=== PATIENT | male | born 1995 | race African-American/Black ===

== ENCOUNTER 2023-08-16 09:24 | Outpatient (AMB) | payer BC, SELFPAY ==
--- NOTE | 2023-08-16 09:31 | A.OFFPC_ITS ---
Vital Signs 08/16/23 09:44 Height 6 ft Weight 254 lb BMI 34.4 BP 110/72 Blood Pressure Location Lt brachial Position Sitting Pulse 68 Pulse Source Pulse Oximeter Pulse Oximetry (%) 99 Oxygen Delivery Method Room Air Intake Visit Reasons: [employer]/PE Intake Note: Pt is here today as a New Patient to [facility] care/PE Allergies No Known Allergies Allergy (Verified 08/16/23 10:09) Medication List - Last Reconciled 08/16/23 by Nini Lucia MD No Known Home Meds Tobacco use date assessed: 08/16/23 Dental Screening Did you have a dental visit in the last 12 months?: Yes Did you have a dental problem in the last 6 months where you did not have access to dental care?: No Was dental information given to patient?: Patient has dentist HPI [employer]/PE HPI Details 28-year-old male, here today to [facility] with a new PCP and for physical exam. Up-to-date with all his vaccinations including his flu , obtained at work, up-to-date with Tdap, but has not yet had a COVID booster. He has been having depressive thoughts, low mood ever since see relocated for job in [place] 3 years ago. Patient states that he has never been seen by therapist, nor has he has taken any medication for this. He moved here now to [facility], and states that he still has low mood, anhedonia, and would like to see a therapist , but not interested in taking any medication at present time. He also felt a nonpainful lump in his left testicle, which he felt a year ago, and has not had it checked. Denies any urinary symptoms, no sexual dysfunction reported. [facility] Medical History (Updated 08/16/23 @ 11:03 by Nini Lucia MD) Mixed anxiety depressive disorder Mass of left testicle Obesity (BMI 30.0-34.9) Surgical History (Updated 08/16/23 @ 10:13 by Nini Lucia MD) No pertinent past surgical history Family History (Updated 08/16/23 @ 10:16 by Nini Lucia MD) Mother Depression Maternal Aunt Mental health disorder Father HTN (hypertension) Maternal Aunt Breast cancer, Onset Age: 40 CVA (cerebral vascular accident) Paternal Uncle Diabetes mellitus Social History Housing: House Patient Tobacco Use Status: Former Tobacco user e-Cigarette/Vaping Use: Never Used service: No Current occupational status: employed Cognitive needs: No Hearing needs: No Vision needs: No Questionnaire PHQ-9 Over the last 2 weeks, how often have you been bothered by any of the following problems? 1. Little interest or pleasure in doing things: several days 2. Feeling down, depressed, or hopeless: more than half the days 3. Trouble falling or staying asleep, or sleeping too much: more than half the days 4. Feeling tired or having little energy: more than half the days 5. Poor appetite or overeating: more than half the days 6. Feeling bad about yourself - or that you are a failure or have let yourself or your family down: several days 7. Trouble concentrating on things, such as reading the newspaper or watching t elevision: several days 8. Moving or speaking so slowly that other people could have noticed. Or the opposite - being so fidgety or restless that you have been moving around a lot more than usual: more than half the days 9. Thoughts that you would be better off or of hurting yourself in some way: not at all Total score: 13 Depression Screening Interpretation: Positive Depression Screening Follow-up: Existing condition and Community Mental Health Worker F/U Depression Screening Done: Yes [id number] - PHQ-9 Billing: Yes Source: Developed by Drs. Malik Dotson, Candelaria Shine, Сергей Basurto and colleagues, with an educational doyle from [employer]. Thrive Questionnaire Date Thrive assessed: 08/16/23 I am a: Patient What is your living situation today?: I have a steady place to live Within the past 12 months, did the food you bought not last and you didn't have the money to get more?: Never true Within the past 12 months, did you worry whether your food would run out before you got money to buy more?: Never true Do you have trouble paying for medicines?: No Do you have trouble getting transportation to medical appointments?: No Do you have trouble paying your heating and electricity bill?: No Do you have trouble taking care of your child, family member or friend?: No Do you have trouble with day-to-day activities such as bathing, preparing meals, shopping, managing finances, etc.?: No Are you currently unemployed and looking for a job?: No Are you interested in more education?: Yes AUDIT C Alcohol Use Questionnaire (AUDIT-C) 1. How often do you have a drink containing alcohol?: Never Total Score: 0 MALLY-7 AMB Questionnaire MALLY-7 Date MALLY - 7 assessed: 08/16/23 Feeling nervous, anxious, or on edge: 1 = Several days Not being able to stop or control worryin = Not at all Worrying too much about different things: 1 = Several days Trouble relaxin = Several days Being so restless that it is hard to sit still: 1 = Several days Becoming easily annoyed or irritable: 2 = More than half the days Feeling afraid as if something awful might happen: 1 = Several days Total MALLY-7 score (0-4 normal; 5-9 mild; 10-14 moderate; 15-21 severe): 7 Source: Developed by Drs. Malik Dotson, Candelaria Shine, Сергей Basurto and colleagues, with an educational doyle from [employer]. MALLY-7 Assessment Billing MALLY-7 Assessment Tool: MALLY-7 Assessment 61991 Review of Systems Const Denies body aches, Denies fatigue, Denies fever(s), Denies headache(s) and Denies weakness Eyes Denies change in vision ENT Denies dizziness, Denies headache(s), Denies nasal congestion, Denies nasal discharge and Denies sore throat Card Denies chest pain, Denies lightheadedness, Denies palpitations and Denies dyspnea Resp Denies chest congestion, Denies cough, Denies dyspnea and Denies wheezing GI Denies abdominal pain, Denies change in bowel habits and Denies heartburn Reports as per HPI, Denies change in libido, Denies hematuria, Denies difficulty urinating, Denies dysuria, Denies urinary frequency and Denies urinary urgency Musc Reports no additional complaints Skin/Breast Denies breast pain, Denies breast mass, Denies lesions and Denies rash Neuro Denies dizziness, Denies headache(s) and Denies weakness Psych Reports as per HPI, Denies change in libido, Denies panic attacks, Denies homicidal ideation and Denies suicidal ideation Endo Denies change in libido, Denies fatigue, Denies polydipsia, Denies polyuria and Denies palpitations Derek/Lymph Denies easy bruising Aller/Immun Denies seasonal rhinorrhea and Denies wheezing Physical exam (Primary Care) Vital Signs: Last Vital Signs Pulse 68 08/16/23 09:44 BP 110/72 08/16/23 09:44 Pulse Ox 99 08/16/23 09:44 Oxygen Delivery Method Room Air 08/16/23 09:44 BMI result Body Mass Index 34.4 BMI Assessment/Plan discussion: High BMI High, discussed plan: lifestyle, weight reduction, dietary and physical activity Tobacco/Smoking Status: Tobacco use Status Tobacco use date assessed 08/16/23 08/16/23 09:38 Patient Tobacco Use Status Former Tobacco user 08/16/23 09:48 e-Cigarette/Vaping Use Never Used 08/16/23 09:48 PHQ-9: PHQ-9 Score PHQ-9: Total score 13 08/16/23 11:09 Depression Screening Interpretation: Positive Depression Screening Follow-up: Existing condition and Community Mental Health Worker F/U Thrive Assessment: Date of Thrive Assessment Date Thrive assessed 08/16/23 08/16/23 09:50 Const General: no acute distress and alert Nutritional Appearance: obese Orientation/consciousness: patient oriented x3 HENMT Head: Yes normocephalic and Yes atraumatic Ears: external ears normal, TM's normal bilaterally and EAC's normal General nose exam: Normal external nose present and No nasal discharge present Face and sinus: Yes face symmetric Mouth: Normal oral and palatal mucosa present, lip normal, tongue normal, oropharynx normal and moist mucous membranes Eyes General: appearance normal, both eyes and all related structures Eyelids: Yes eyelids normal Conjunctivae: conjunctivae normal Sclerae: sclerae normal Pupils: Equal, round and reactive pupils present EOM: EOMs intact bilaterally Neck Neck: Yes full ROM, Yes no lymphadenopathy and Yes supple Thyroid: Thyroid normal (Nonpalpable) Chest Chest palpation & inspection: normal inspection of the chest and normal palpation of entire chest wall Resp Effort & Inspection: normal respiratory effort and able to speak in complete sentences Auscultation: clear to auscultation bilaterally Cardio Rate: regular rate Rhythm: regular rhythm Heart sounds: S1 normal heart sound present and S2 normal heart sound present GI Palpation (GI): Soft to palpation, nontender, no guarding and no masses Auscultation: normal bowel sounds General: Yes no CVA tenderness Male General Exam: Yes normal external exam, No hernia and No inguinal lymphadenopathy Penis: uncircumcised Meatus: meatus normal Scrotum: no scrotal swelling Testes: testicular mass (Firm nontender nodular mass palpated left testicle) Back/Spine/Pelvis Back: no CVA tenderness and No back tenderness Skin Other: assymetric Hyperpigmented slightly raised lesion with irregular borders on mid Abdomen Neuro General: patient oriented x3, gait normal, moves all extremities, Normal light touch and pain sensation, no focal motor deficits and CN's II-XI intact bilaterally Cranial nerves: Yes Equal, round and reactive pupils present Cognition (Neuro): normal cognition Gait exam (Neuro): Normal gait present Motor exam (neuro): 5/5 motor strength present throughout Extrem General: Yes normal to inspection, Yes full ROM, Yes no joint enlargement, Yes no pedal edema and Yes normal gait Psych Appearance: grossly normal and well kempt Mental Status: mental status grossly normal Speech and movement: Normal speech and movement present Affect: normal affect Attitude: cooperative Thought process: Normal thought process present Thought content: Normal thought content present Assessment and Plan Assessment & Plan (1) Adult general medical exam: Code(s): Z00.00 - Encounter for general adult medical examination without abnormal findings Plan: Will check appropriate labs. Continue regular dental visit every 6 months and regular eye exams, at least every 2 years. Has a left testicular mass palpated, referred to urology and ordered ultrasound of scrotum. Up-to-date with his vaccine for flu, declines getting COVID booster, up-to-date with Tdap (2) Mass of left testicle: Code(s): N50.89 - Other specified disorders of the male genital organs Plan: Ultrasound scrotum Doppler and urology consult ordered (3) Obesity (BMI 30.0-34.9): Code(s): E66.9 - Obesity, unspecified Plan: Recommended focusing on improving your health instead of dieting. : Eat Mediterranean diet, limit foods high in fat, sugar, and calories, eat slowly, pay attention to portion sizes, plan your meals ahead of time, start regular physical activity 150 minutes of moderate intensity exercise or 90 minutes/week of vigorous exercise and increase water intake. (4) Skin lesion: Code(s): L98.9 - Disorder of the skin and subcutaneous tissue, unspecified Plan: Referral ordered to see [facility] for further evaluation (5) Mixed anxiety depressive disorder: Code(s): F41.8 - Other specified anxiety disorders Plan: Referred to our [facility] for assistance in getting in to see a therapist. Declines starting medication at present time Orders: Orders Comprehensive [place]. Panel Fast Today E66.9 - Obesity, unspecified, N50.89 - Other specified disorders of the male genital organs, Z00.00 - Encounter for general adult medical examination without abnormal findings Vitamin D 25-OH Total Today E66.9 - Obesity, unspecified, N50.89 - Other specified disorders of the male genital organs, Z00.00 - Encounter for general adult medical examination without abnormal findings US scrotum doppler Today N50.89 - Other specified disorders of the male genital organs Lipid Panel Today E66.9 - Obesity, unspecified, N50.89 - Other specified diso rders of the male genital organs, Z00.00 - Encounter for general adult medical examination without abnormal findings Referrals Dermatology Referral L98.9 - Disorder of the skin and subcutaneous tissue, unspecified Urology Referral N50.89 - Other specified disorders of the male genital organs Coding Level of Care Code New Pt Prev Care 18-39yr([id number] Diagnoses Adult general medical exam Z00.00 Mass of left testicle N50.89 Obesity (BMI 30.0-34.9) E66.9 Skin lesion L98.9 Mixed anxiety depressive disorder F41.8 Additional Codes MALLY-7 Assessment Billing - MALLY-7 Assessment Tool: MALLY-7 Assessment 13507 ([id number])
[2023-08-16 09:44] VITALS: BP 110/72; PULSE 68; O2SAT 99; BMI 34.4
== END 2023-08-16 10:42 | disposition home or self-care (01) ==
PROVIDERS: PCP Internal Medicine; Visit Provider Internal Medicine
DX: Z00.00 Encounter for general adult medical examination without abnormal findings (principal); N50.89 Other specified disorders of the male genital organs; E66.9 Obesity, unspecified; Z68.34 Body mass index [BMI] 34.0-34.9, adult; L98.9 Disorder of the skin and subcutaneous tissue, unspecified; F41.8 Other specified anxiety disorders
CPT/HCPCS: 99385

== ENCOUNTER 2023-08-16 10:43 | Outpatient (REF) | payer BC, SELFPAY ==
[2023-08-16 13:31] LABS: Alanine Aminotransferase 30 U/L (0-40); Albumin Level 4.7 g/dL (3.5-5.0); Alkaline Phosphatase 61 U/L (39-117); Anion Gap 13 (12-20); Aspartate Amino Transferase 20 U/L (5-37); Bilirubin Total 0.6 mg/dL (0.0-1.0); Blood Urea Nitrogen 12 mg/dL (9-16); Carbon Dioxide 27 mmol/L (22-29); Chloride 105 mmol/L (96-108); Cholesterol 214 mg/dL (<200); Estimated Glomerular Filt Rate > 60; Glucose Fasting 91 mg/dL (60-99); HDL Cholesterol 48 mg/dL (>40); LDL Cholesterol Calculated 138 mg/dL (<100); Potassium 4.1 mmol/L (3.3-5.1); Sodium 141 mmol/L (135-145); Total Protein 7.9 g/dL (6.5-8.0); Triglycerides 140 mg/dL (<150)
[2023-08-16 13:50] LABS: Vitamin D 25-OH Total 27.1 ng/mL (>30)
== END 2023-08-16 10:44 | disposition home or self-care (01) ==
LOC: HO.HMGCLDS 10:43
PROVIDERS: PCP Internal Medicine; Visit Provider Internal Medicine
DX: Z00.00 Encounter for general adult medical examination without abnormal findings (principal); N50.89 Other specified disorders of the male genital organs; E66.9 Obesity, unspecified
CPT/HCPCS: 36415; 80053; 80061; 82306

== ENCOUNTER 2023-08-23 13:45 | Outpatient (REF) | payer BC, SELFPAY ==
--- NOTE | ~2023-08-23 | US_ITS ---
EXAMINATION: US SCROTUM CLINICAL INFORMATION: Other side scratch that other specified disorders of the male genital organs Mass of left testicle, nonpainful. COMPARISON: None available. TECHNIQUE: A sonogram of the scrotum was performed assessing perez-scale appearance and color Doppler flow. Spectral Doppler analysis of the arterial and venous flow were performed in the testes bilaterally. FINDINGS: RIGHT: Right testicle measures 4.3 x 2.6 x 3.5 cm, volume 20.5 mL. No focal testicular parenchymal lesions are visualized. Spectral Doppler analysis of the arterial and venous flow is normal in the right testis. Right epididymal head is normal in size. No right hydrocele or varicocele is seen. Right epididymal Doppler flow is normal. LEFT: Left testicle measures 4.3 x 2.5 x 3.2 cm, volume 18.0 mL. No focal testicular parenchymal lesions are visualized. Spectral Doppler analysis of the arterial and venous flow is normal in the left testis. Left epididymal head is normal in size. 0.4 x 0.5 x 0.4 cm septated epididymal head cyst is seen. No left hydrocele or varicocele is seen. Left epididymal Doppler flow is normal in the head and body. 1.6 x 1.6 x 1.8 cm well-defined solid round heterogeneous mass is seen in the epididymal tail with both arterial and venous vascular supply. US/US scrotum IMPRESSION: 1. Normal testicles and right epididymal head. 2. 0.5 cm septated left epididymal head cyst. 3. 1.8 cm well-defined solid round heterogeneous mass in the left epididymal tail with both arterial and venous vascular supply. Urology consult should be considered.
== END 2023-08-23 13:46 | disposition home or self-care (01) ==
LOC: HO.HMGCX 13:45
PROVIDERS: PCP Internal Medicine; Visit Provider Internal Medicine
DX: N50.89 Other specified disorders of the male genital organs (principal)
CPT/HCPCS: 76870

== ENCOUNTER 2023-09-13 15:02 | Outpatient (AMB) | payer BC, SELFPAY ==
--- NOTE | 2023-09-13 15:04 | A.OFFVIS_ITS ---
Intake Intake Visit Reasons: scrotal mass Intake Note: New Patient presents for initial visit for Scrotal Mass Urology Medications: none Blood Thinner: none Butter Production Supervisor Required: No Accompanied by: Self / Same As Patient Allergies No Known Allergies Allergy (Verified 09/13/23 15:43) Medication List - Last Reconciled 09/13/23 by LISS Barrett cholecalciferol (vitamin D3) 1,250 mcg PO QWEEK 3 months HPI HPI Comments History of Present Illness Details Esdras is a very pleasant 28-year-old male patient of Dr. Lucia. He has a past medical history of anxiety, depression, and vitamin-D deficiency. He presents to the office today as a new patient for left-sided scrotal mass. In discussion with the patient today he reports noting scrotal mass for over 2-3 years. He reports having followed up with his PCP for an annual visit at which time he discussed findings with PCP and a scrotal ultrasound was ordered for further assessment evaluation. These results were reviewed with the patient today. Normal testicles and right epididymal head. 0.5 cm sseptated left epididymal head cysts. 1.8 cm well-defined solid round heterogeneous mass in the left epididymal tail with both arterial and venous vascular supply. In assessment of the patient today proximally nickel sized lump noted to left epididymal tail. Mild tenderness noted on exam today. Otherwise no other lumps, lesions, and or drainage noted to area. Discussed at length potential causes for scrotal cysts. Patient otherwise denies any bothersome urinary issues or concerns. He denies urinary urgency, urinary frequency, incontinence, nocturia, hematuria, dysuria, foul smelling urine, changes to urinary stream, flank pain, fever, and or chills. He is happy with his current voiding parameters. [facility] Medical History Vitamin D deficiency Mixed anxiety depressive disorder Mass of left testicle Obesity (BMI 30.0-34.9) Surgical History No pertinent past surgical history Family History Mother Depression Maternal Aunt Mental health disorder Father HTN (hypertension) Maternal Aunt Breast cancer, Onset Age: 40 CVA (cerebral vascular accident) Paternal Uncle Diabetes mellitus Social History Housing: House Patient Tobacco Use Status: Former Tobacco user e-Cigarette/Vaping Use: Never Used service: No Current occupational status: employed Cognitive needs: No Hearing needs: No Vision needs: No Review of Systems Const All systems reviewed & are unremarkable except as noted in HPI and below Eyes Reports no additional complaints ENT Reports no additional complaints Card Reports no additional complaints Resp Reports no additional complaints GI Reports no additional complaints Reports as per HPI Musc Reports no additional complaints Neuro Reports no additional complaints Psych Reports as per HPI Endo Reports no additional complaints Derek/Lymph Reports no additional complaints Aller/Immun Reports no additional complaints Physical Exam Const General: cooperative, healthy appearing, comfortable, no acute distress, well developed, alert and awake Orientation/consciousness: patient oriented x3 Limitations: no limitations HEENT Head: Yes normal to inspection, Yes normocephalic and Yes atraumatic Ears: hearing grossly normal bilaterally Eyes General: appearance normal, both eyes and all related structures Neck Neck: Yes normal visual inspection and Yes trachea midline Chest Chest palpation & inspection: normal inspection of the chest Resp Effort & Inspection: normal respiratory effort and able to speak in complete sentences Cardio Rate: regular rate GI Inspection: Yes normal to inspection General: Yes no CVA tenderness Back/Spine/Pelvis Back: no CVA tenderness Skin General skin exam: no rashes or lesions noted Neuro General: patient oriented x3 Extrem General: Yes normal to inspection Psych Appearance: grossly normal and well kempt Mental Status: mental status grossly normal Speech and movement: Normal speech and movement present and Clear speech present Affect: normal affect Attitude: cooperative Thought process: Normal thought process present Thought content: Normal thought content present Insight: Good insight present (Psych) Judgement: Good judgement present (Psych) Results Reviewed Results Reviewed: Date of Service: 08/23/23 EXAMINATION: US SCROTUM FINDINGS: RIGHT: Right testicle measures 4.3 x 2.6 x 3.5 cm, volume 20.5 mL. No focal testicular parenchymal lesions are visualized. Spectral Doppler analysis of the arterial and venous flow is normal in the right testis. Right epididymal head is normal in size. No right hydrocele or varicocele is seen. Right epididymal Doppler flow is normal. LEFT: Left testicle measures 4.3 x 2.5 x 3.2 cm, volume 18.0 mL. No focal testicular parenchymal lesions are visualized. Spectral Doppler analysis of the arterial and venous flow is normal in the left testis. Left epididymal head is normal in size. 0.4 x 0.5 x 0.4 cm septated epididymal head cyst is seen. No left hydrocele or varicocele is seen. Left epididymal Doppler flow is normal in the head and body. 1.6 x 1.6 x 1.8 cm well-defined solid round heterogeneous mass is seen in the epididymal tail with both arterial and venous vascular supply. IMPRESSION: 1. Normal testicles and right epididymal head. 2. 0.5 cm septated left epididymal head cyst. 3. 1.8 cm well-defined solid round heterogeneous mass in the left epididymal tail with both arterial and venous vascular supply. Urology consult should be considered. Assessment & Plan Assessment & Plan (1) Epididymal cyst: Code(s): N50.3 - Cyst of epididymis Plan Unable to obtain urine for urinalysis however PVR 0 mL. Recent scrotal ultrasound results reviewed with the patient today; as noted above. Reassurance provided. Discussed at length potential causes for epididymal tail cyst. Patient currently denies any bothersome urinary issues or concerns. Will obtain scrotal ultrasound in 6 months for surveillance monitoring. Follow-up in 6 months with imaging to be completed prior; or sooner with any issues, concerns, and or questions. Orders: Orders US scrotum Today N50.3 - Cyst of epididymis AMB Urinalysis Automated Today Z13.9 - Encounter for screening, unspecified Patient Instructions: The patient had an opportunity to ask questions regarding the treatment plan. All questions were answered. Physical exam, labs, and imaging were discussed and reviewed in detail. As well as risks, benefits, and discussion of treatment choices. No major barriers to understanding were identified. The patient expressed understanding and agreement with the above treatment plan. The patient was made aware they should contact our office by phone for worsening of their current condition, the appearance of new symptoms, or with any questions or concerns. Compliance is encouraged with any medications and follow up testing that is ordered. It is a privilege to be allowed the opportunity to participate in? your urological care.? Again, if you have any questions or concerns If you have any questions or concerns please do not hesitate to contact me. The office is [phone]. This note is constructed using voice recognition software. While every effort has been made to ensure accuracy casualty underwriter errors may have been included. Yours sincerely, Nicolle Hodge, HAND [employer] Coding Level of Care Code New Pt Level 3 (58715) Diagnoses Epididymal cyst N50.3
== END 2023-09-13 15:42 | disposition home or self-care (01) ==
PROVIDERS: PCP Internal Medicine; Referring Provider Internal Medicine; Visit Provider Nurse Practitioner Family
DX: N50.3 Cyst of epididymis (principal)
CPT/HCPCS: 99203

== ENCOUNTER → 2023-09-13 15:02 | Outpatient (BNVA) | payer BC, SELFPAY | PROVIDERS: PCP Internal Medicine; Visit Provider Nurse Practitioner Family ==

== ENCOUNTER 2023-12-07 11:47 | Outpatient (AMB) | payer OTHER, SELFPAY ==
[2023-12-07 11:52] VITALS: BP 112/70; PULSE 74; TEMP 36.8; O2SAT 99; BMI 33.6
--- NOTE | 2023-12-07 11:52 | MHC.OFFWIV ---
Intake Vital Signs 12/07/23 11:52 Height 6 ft Weight 248 lb BMI 33.6 BP 112/70 Blood Pressure Location Lt brachial Position Sitting Pulse 74 Pulse Source Pulse Oximeter Temp 98.2 F Temp Source Oral Pulse Oximetry (%) 99 Intake Visit Reasons: EP RT index finger infection (lobby) Intake Note: pt is here for right index finger infection, for a few days and denies injury Patient Tobacco Use Status: Former Tobacco user Allergies No Known Allergies Allergy (Verified 12/07/23 11:53) Do you need a note to return to daycare/school/sports/work: Yes HPI HPI Comments History of Present Illness Details The patient presents to the emergency department for evaluation of right hand 2nd digit infection. He states that he occasionally bites his cuticles. He states that a few days ago there was some purulent drainage but that has stopped. The area is tender and swollen. COUNT INCLUDES THE [facility] Medical History Vitamin D deficiency Mixed anxiety depressive disorder Mass of left testicle Obesity (BMI 30.0-34.9) Surgical History No pertinent past surgical history Family History Mother Depression Maternal Aunt Mental health disorder Father HTN (hypertension) Maternal Aunt Breast cancer, Onset Age: 40 CVA (cerebral vascular accident) Paternal Uncle Diabetes mellitus Social History Housing: House Patient Tobacco Use Status: Former Tobacco user e-Cigarette/Vaping Use: Never Used service: No Current occupational status: employed Cognitive needs: No Hearing needs: No Vision needs: No Review of Systems Eyes Reports no additional complaints ENT Reports Normal hearing present and Denies dysphagia Card Denies dyspnea and Denies slow heart rate Resp Denies cough and Denies dyspnea GI Denies dysphagia and Denies heartburn Denies dysuria Musc Denies tingling Skin/Breast Reports lesions, Denies skin ulcer and Denies unusual bruising Neuro Reports Normal hearing present, Denies Sensory deficit (Neuro), Denies tingling and Denies paresthesias Physical Exam Vital Signs: Last Vital Signs Temp 98.2 F 12/07/23 11:52 Pulse 74 04/17/24 11:52 BP 112/70 12/07/23 11:52 Pulse Ox 99 12/07/23 11:52 BMI result Body Mass Index 33.6 Const General: healthy appearing and no acute distress Resp Effort & Inspection: normal respiratory effort and able to speak in complete sentences Skin Other: Right hand 2nd digit swelling around the nailbed tender. No fluctuance. No drainage. Neuro Cranial nerves: Yes Normal hearing present Sensory Exam: No Sensory deficit (Neuro) Assessment & Plan Assessment & Plan (1) Paronychia of finger: Code(s): L03.019 - Cellulitis of unspecified finger Plan: The patient presents with a paronychia of the right hand 2nd digit. It does not feel acutely fluctuant and it is not exquisitely tender as 1 would expect if there was purulence in the skin. Patient states that a couple of days ago it did drain. I do not think there is anything worth incising and draining at this time. Given the swelling and redness on going to place patient on course of oral antibiotics. Patient agreeable with plan. Recommend to return if symptoms persist or gets worse in it which point he may need a drainage. Medications: New cephalexin 500 mg PO QID 5 days 20 caps 0RF Coding Level of Care Code Est Pt Level 3 (23859) Diagnoses Paronychia of finger L03.019
== END 2023-12-07 13:01 | disposition home or self-care (01) ==
PROVIDERS: PCP Internal Medicine; Visit Provider Emergency Medicine
DX: L03.019 Cellulitis of unspecified finger (principal)
CPT/HCPCS: 99213

== ENCOUNTER 2024-01-06 09:28 | Outpatient (AMB) | payer OTHER, SELFPAY ==
--- NOTE | 2024-01-06 09:24 | MHC.PC.OV ---
Intake Visit Reasons: Discuss Sleep referral ~[employer] [phone] Intake Note: Pt is having a TH visit to discuss sleep study referral Allergies No Known Allergies Allergy (Verified 01/06/24 09:45) Medication List - Last Reconciled 01/06/24 by Nini Lucia MD cholecalciferol (vitamin D3) 25 mcg PO DAILY Tobacco use date assessed: 01/06/24 Dental Screening Dental Screen Date: 01/06/24 Did you have a dental visit in the last 12 months?: Yes Did you have a dental problem in the last 6 months where you did not have access to dental care?: No Was dental information given to patient?: Patient has dentist HPI Discuss Sleep referral ~[employer] [phone] HPI Details 28-year-old male, here today , encouraged by his to see a doctor and get a sleep study as he has in snoring very loudly at night and has had episodes where in he would wake up choking and gasping for breath. He also has been told that he would sometimes briefly stopping breathing when asleep. This has been an ongoing issue now for the last several months and seems to be getting worse. He try sleeping on his lied but it has not been helping. [place] Sleepiness scale came back at 11 [facility] Medical History (Updated 01/06/24 @ 09:58 by Nini Lucia MD) Excessive daytime sleepiness Witnessed apneic spells Loud snoring Vitamin D deficiency Mixed anxiety depressive disorder Mass of left testicle Obesity (BMI 30.0-34.9) Surgical History No pertinent past surgical history Family History Mother Depression Maternal Aunt Mental health disorder Father HTN (hypertension) Maternal Aunt Breast cancer, Onset Age: 40 CVA (cerebral vascular accident) Paternal Uncle Diabetes mellitus Social History Housing: House Patient Tobacco Use Status: Former Tobacco user e-Cigarette/Vaping Use: Never Used service: No Current occupational status: employed Cognitive needs: No Hearing needs: No Vision needs: No Questionnaire PHQ-9 Over the last 2 weeks, how often have you been bothered by any of the following problems? 1. Little interest or pleasure in doing things: not at all 2. Feeling down, depressed, or hopeless: not at all 3. Trouble falling or staying asleep, or sleeping too much: not at all 4. Feeling tired or having little energy: not at all 5. Poor appetite or overeating: not at all 6. Feeling bad about yourself - or that you are a failure or have let yourself or your family down: not at all 7. Trouble concentrating on things, such as reading the newspaper or watching television: not at all 8. Moving or speaking so slowly that other people could have noticed. Or the opposite - being so fidgety or restless that you have been moving around a lot more than usual: not at all 9. Thoughts that you would be better off or of hurting yourself in some way: not at all Total score: 0 Depression Screening Interpretation: Negative Depression Screening Done: Yes 60334 - PHQ-9 Billing: Yes Source: Developed by Drs. Malik Dotson, Candelaria Shine, Сергей Basurto and colleagues, with an educational doyle from [employer]. Thrive Questionnaire Date Thrive assessed: 01/06/24 I am a: Patient What is your living situation today?: I have a steady place to live Within the past 12 months, did the food you bought not last and you didn't have the money to get more?: Never true Within the past 12 months, did you worry whether your food would run out before you got money to buy more?: Never true Do you have trouble paying for medicines?: No Do you have trouble getting transportation to medical appointments?: No Do you have trouble paying your heating and electricity bill?: No Do you have trouble taking care of your child, family member or friend?: No Do you have trouble with day-to-day activities such as bathing, preparing meals, shopping, managing finances, etc.?: No Are you currently unemployed and looking for a job?: No Are you interested in more education?: No THRIVE Score: 0 AUDIT C Alcohol Use Questionnaire (AUDIT-C) 1. How often do you have a drink containing alcohol?: Never Total Score: 0 MALLY-7 AMB Questionnaire MALLY-7 Date MALLY - 7 assessed: 01/06/24 Feeling nervous, anxious, or on edge: 0 = Not at all Not being able to stop or control worryin = Not at all Worrying too much about different things: 0 = Not at all Trouble relaxin = Not at all Being so restless that it is hard to sit still: 0 = Not at all Becoming easily annoyed or irritable: 0 = Not at all Feeling afraid as if something awful might happen: 0 = Not at all Total MALLY-7 score (0-4 normal; 5-9 mild; 10-14 moderate; 15-21 severe): 0 Source: Developed by Drs. Malik Dotson, Candelaria Shine, Сергей Basurto and colleagues, with an educational doyle from [employer]. [place] Sleepiness Scale Questions Sitting and reading: moderate chance of dozing Watching TV: moderate chance of dozing Sitting inactive in a theater, movie etc.: would never doze As a passenger in a car for an hour without break: moderate chance of dozing Lying down in the afternoon when circumstances permit: high chance of dozing Sitting and talking to someone: would never doze Sitting quietly after lunch without alcohol: moderate chance of dozing In a car, while stopped for a few minutes in the traffic: would never doze ESS < 10: normal, ESS > 12: pathologic: 11 Review of Systems Const Reports as per HPI Physical exam (Primary Care) Tobacco/Smoking Status: Tobacco use Status Tobacco use date assessed 01/06/24 01/06/24 09:26 Patient Tobacco Use Status Former Tobacco user 01/06/24 09:26 e-Cigarette/Vaping Use Never Used 01/06/24 09:26 PHQ-9: PHQ-9 Score PHQ-9: Total score 0 01/06/24 10:01 Depression Screening Interpretation: Negative Thrive Assessment: Date of Thrive Assessment Date Thrive assessed 01/06/24 01/06/24 09:28 Telehealth Telehealth Telehealth Platform: [facility] Location of provider rendering services: practice address Location of patient: address on file Patient Identification confirmed using: Name, : Yes Telehealth method: video Patient verbally consented to treatment: Yes Patient verbally consented to billing insurance company: Yes Patient informed of any privacy concerns related to visit: Yes Minutes spent on Phone/Video with Pt.: 15 Assessment and Plan Assessment & Plan (1) Obesity (BMI 30.0-34.9): Code(s): E66.9 - Obesity, unspecified Plan: Encouraged to lose weight through diet and exercise (2) Loud snoring: Code(s): R06.83 - Snoring (3) Witnessed apneic spells: Code(s): R06.81 - Apnea, not elsewhere classified (4) Excessive daytime sleepiness: Code(s): G47.19 - Other hypersomnia Plan Referred for evaluation for possible sleep apnea to sleep medicine at [facility] Orders: Referrals Sleep Medicine Referral E66.9 - Obesity, unspecified, G47.19 - Other hypersomnia, R06.81 - Apnea, not elsewhere classified, R06.83 - Snoring Coding Level of Care Code Tele Est Pt Level 4 (42237) Diagnoses Obesity (BMI 30.0-34.9) E66.9 Loud snoring R06.83 Witnessed apneic spells R06.81 Excessive daytime sleepiness G47.19
== END 2024-01-06 14:02 | disposition home or self-care (01) ==
LOC: HO.HMGC 09:28
PROVIDERS: PCP Internal Medicine; Visit Provider Internal Medicine
DX: R06.83 Snoring (principal); E66.9 Obesity, unspecified; R06.81 Apnea, not elsewhere classified; G47.19 Other hypersomnia
CPT/HCPCS: 99214

== ENCOUNTER 2024-01-09 12:35 | Outpatient (AMB) | payer OTHER, SELFPAY ==
--- NOTE | 2024-01-09 12:37 | MHC.OFFVIS ---
Vital Signs 01/09/24 12:38 Height 6 ft Weight 248 lb BMI 33.6 BP 130/76 Blood Pressure Location Rt brachial Position Sitting Respiration 16 Pulse 77 Pulse Source Pulse Oximeter Pulse Oximetry (%) 98 Oxygen Delivery Method Room Air Intake Visit Reasons: INP-Snoring Intake Note: Pt presents tot he office for new pt evaluation for snoring. 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 Main complaints-Snoring Sleep questionnaire- Difficulty falling asleep-yes Difficulty staying asleep-yes Number of [id number] Snoring-yes Witnessed apneas-yes Gasping arousals-no Nocturia-no GERD-no Vivid dreams-yes Acting out dreams -sleep talking Abnormal behavior in sleep-no ABnormal movements in sleep-yes Morning headaches-no Excessive daytime sleepiness-yes Daytime naps- yes- 1 nap 2 hrs works 8am-4.30 pm 5-7PM 11 pm bedtime 6am restless legs- yes Hallucinations- no sleep paralysis- no Drop attacks- no Sleep studyno- Sleep Hygiene- Sleep time 11pm Wake time 6am coffee/stimulant use- none Phone Electronics use-yes Exercise-none Bedroom comfort- good [facility] Medical History Excessive daytime sleepiness Witnessed apneic spells Loud snoring Vitamin D deficiency Mixed anxiety depressive disorder Mass of left testicle Obesity (BMI 30.0-34.9) Surgical History No pertinent past surgical history Family History Mother Depression Maternal Aunt Mental health disorder Father HTN (hypertension) Maternal Aunt Breast cancer, Onset Age: 40 CVA (cerebral vascular accident) Paternal Uncle Diabetes mellitus Social History Housing: House Patient Tobacco Use Status: Former Tobacco user e-Cigarette/Vaping Use: Never Used service: No Current occupational status: employed Cognitive needs: No Hearing needs: No Vision needs: No Physical Exam Vital Signs: Last Vital Signs Pulse 77 05/20/24 12:38 Resp 16 01/09/24 12:38 BP 130/76 01/09/24 12:38 Pulse Ox 98 01/09/24 12:38 Oxygen Delivery Method Room Air 01/09/24 12:38 BMI result Body Mass Index 33.6 Const General: cooperative, healthy appearing and comfortable Nutritional Appearance: overweight Orientation/consciousness: patient oriented x3 Eyes Pupils: Equal, round and reactive pupils present Neuro General: patient oriented x3, gait normal, tone normal, moves all extremities and no focal motor deficits Cranial nerves: Yes Equal, round and reactive pupils present, Yes Bilaterally intact EOM present, Yes Nystagmus not present, Yes Normal facial strength present and Yes Midline tongue present Cognition (Neuro): normal cognition Gait exam (Neuro): Normal gait present Motor exam (neuro): 5/5 motor strength present throughout and Normal motor muscle tone present throughout Deep tendon reflexes (DTR's): Right triceps reflex intensity grade: 1+, Left triceps reflex intensity grade: 1+, Rt Biceps (C5, C6): 1+, Left biceps reflex intensity grade: 1+, Right brachioradialis reflex intensity grade: 1+, Left brachioradialis reflex intensity grade: 1+, Right patellar reflex intensity grade: 1+ and Left patellar reflex intensity grade: 1+ Coordination: [id number] test normal Assessment & Plan Assessment & Plan (1) Loud snoring: Code(s): R06.83 - Snoring Category: Medical (2) Witnessed apneic spells: Code(s): R06.81 - Apnea, not elsewhere classified Category: Medical (3) Excessive daytime sleepiness: Code(s): G47.19 - Other hypersomnia Category: Medical Plan I will evaluate him with home sleep test to r/o sleep apnea. Will check his Vitamin TSH Vit B 12 for hyperosmnia. Orders: Orders Vitamin B12 and Folate Today R53.83 - Other fatigue TSH reflex Free T4 Today R53.83 - Other fatigue Ferritin Today R53.83 - Other fatigue RT home sleep study Today G47.19 - Other hypersomnia, R06.81 - Apnea, not elsewhere classified, R06.83 - Snoring Coding Level of Care Code New Pt Level 4 (89052) Diagnoses Loud snoring R06.83 Witnessed apneic spells R06.81 Excessive daytime sleepiness G47.19
[2024-01-09 12:38] VITALS: BP 130/76; PULSE 77; RESP 16; O2SAT 98; BMI 33.6
== END 2024-01-09 13:07 | disposition home or self-care (01) ==
PROVIDERS: PCP Internal Medicine; Visit Provider Psychiatry & Neurology Neurology
DX: R06.83 Snoring (principal); R06.81 Apnea, not elsewhere classified; G47.19 Other hypersomnia
CPT/HCPCS: 99204

== ENCOUNTER → 2024-01-09 12:35 | Outpatient (BNVA) | payer OTHER, SELFPAY | PROVIDERS: PCP Internal Medicine; Visit Provider Psychiatry & Neurology Neurology ==

== ENCOUNTER 2024-02-27 08:32 | Outpatient (REF) | payer OTHER, SELFPAY ==
--- NOTE | ~2024-02-27 | US_ITS ---
EXAMINATION: US SCROTUM CLINICAL INFORMATION: Cyst of epididymis. Patient reports some left testicular pain. COMPARISON: Ultrasound scrotum 08/23/2023. TECHNIQUE: A sonogram of the scrotum was performed assessing perez-scale appearance and color Doppler flow. Spectral Doppler analysis of the arterial and venous flow were performed in the testes bilaterally. FINDINGS: RIGHT: Right testicle measures 4.7 x 2.3 x 3.3 cm, volume 18.7 mL. No focal testicular parenchymal lesions are visualized. Spectral Doppler analysis of the arterial and venous flow is normal in the right testis. 0.2 x 0.2 x 0.3 cm cyst in the right epididymal head. No right hydrocele or varicocele is seen. Right epididymal Doppler flow is normal. LEFT: Left testicle measures 4.3 x 2.4 x 3.5 cm, volume 18.9 mL. No focal testicular lesion appreciated. Spectral Doppler analysis of the arterial and venous flow is normal in the left testis. There is a 1.7 x 1.6 x 1.9 cm heterogeneous, hypoechoic solid mass with internal vascularity which appears to be located in the region of the left epididymal head on the current exam. The previous exam of 09/09/2023 demonstrated a similar-appearing 1.6 x 1.8 x 1.6 cm mass with internal vascularity which had been felt at that time to be located in the epididymal tail. Radiologist was not in attendance at the time of this exam, and images were later provided for interpretation on 03/20/2024. After detailed discussion at this time with sonographers Salima Quintanilla and Maria L Mckeon, it was felt that the differences in perceived location of this left epididymal mass were more likely attributable to mobility of scrotal structures including testicles and epididymides which limited ability to replicate and confirm location of this mass relative to epididymal head, body and tail. Recommend attention to this lesion and particularly to localization when the patient returns for followup imaging. A 0.4 x 0.3 x 0.4 cm cyst with septation is located within the left epididymis and was felt by the undercutter operator to be located in the epididymal tail on the current exam. Previous exam demonstrated a 0.4 cm cyst with septation which was felt to be located in the epididymal head. Again, discrepancies in location within the epididymis could be attributable to variations in mobility/positioning. Recommend attention to these structures when patient returns for additional imaging. No left hydrocele or varicocele is seen. Left epididymal Doppler flow is normal. US/US scrotum IMPRESSION: 1. There is a 1.7 x 1.6 x 1.9 cm heterogeneous, solid mass with internal vascularity which appears to be located in the region of the left epididymal head on the current exam. The previous exam of 08/23/2023 demonstrated a similar-appearing 1.6 x 1.8 x 1.6 cm mass with internal vascularity which had been felt at that time to be located in the epididymal tail. Radiologist was not in attendance at the time of this exam, and images were later provided for interpretation on 03/20/2024. After detailed discussion at this time with sonographers Salima Quintanilla and Maria L Mckeon, it was felt that the differences in perceived location of this left epididymal mass were more likely attributable to mobility of scrotal structures including testicles and epididymides which limited ability to replicate and confirm location of this mass relative to epididymal head, body and tail. Recommend attention to this lesion and particularly to appropriate localization when the patient returns for followup imaging. Recommend followup ultrasound in 2-3 months based on the clinical assessment. Differential considerations for this solid mass include both benign and malignant etiologies. Correlation with clinical examination and urology consultation recommended to determine further management. 2. A 0.4 cm cyst with septation is located within the left epididymis and was felt by the undercutter operator to be located in the epididymal tail on the current exam. Previous exam demonstrated a 0.4 cm cyst with septation which was felt to be located in the epididymal head. Again, discrepancies in location within the epididymis could be attributable to variations in mobility/positioning. Recommend attention to these structures when patient returns for additional imaging. This study was presented to [facility] March 20, 2024 for interpretation. PSA staff will provide results to referring provider at this time.
== END 2024-02-27 08:33 | disposition home or self-care (01) ==
LOC: HO.HMGCX 08:32
PROVIDERS: PCP Internal Medicine; Visit Provider Nurse Practitioner Family
DX: N50.3 Cyst of epididymis (principal)
CPT/HCPCS: 76870

== ENCOUNTER → 2024-03-01 07:53 | Outpatient (REF) | payer OTHER, SELFPAY | LOC: HO.SL 07:53 | PROVIDERS: Visit Provider Psychiatry & Neurology Neurology | DX: G47.19 Other hypersomnia (principal); R06.81 Apnea, not elsewhere classified; R06.83 Snoring | CPT/HCPCS: 95806 ==

== ENCOUNTER → 2024-03-01 08:02 | Outpatient (BNV) | payer OTHER, SELFPAY | PROVIDERS: Visit Provider Psychiatry & Neurology Neurology | DX: R06.83 Snoring (principal); G47.19 Other hypersomnia | CPT/HCPCS: 95806 ==

== ENCOUNTER 2024-03-13 14:14 | Outpatient (AMB) | payer OTHER, SELFPAY ==
--- NOTE | 2024-03-13 14:18 | A.OFFVIS_ITS ---
Intake Visit Reasons: 6m/US(set) Intake Note: Patient presents for follow up visit on: Epididymal Cyst and Ultrasound Results Imagin02/27/24 Urology Medications: none Blood Thinner: none Driver Salesman Required: No Accompanied by: Self / Same As Patient Allergies No Known Allergies Allergy (Verified 03/13/24 14:44) Medication List - Last Reconciled 03/13/24 by LISS Barrett No Known Home Meds HPI Comments Details: Esdras is a very pleasant 28-year-old male patient of Dr. Lucia. He has a past medical history of anxiety, depression, and vitamin-D deficiency. He presents to the office today for follow-up of his bilateral epididymal head cysts. In discussion with the patient today reports to be doing and feeling well. Recent scrotal ultrasound results reviewed with the patient today. Right testicle with no focal testicular lesions. Doppler analysis of arterial and venous flow was normal of the right testes. 0.3 cm cyst in the right epididymal head. No right hydrocele or varicocele seen. Right epididymal Doppler flow was normal. Left kidney with no testicular lesion appreciated. Doppler analysis of arterial and venous flow is normal in the left testes. Again 1.9 cm heterogeneous hypoechoic mass with internal vascularity which appears to be located in the region of the left epididymal head on exam. These findings are similar to previous scrotal ultrasound from 08/2023. He reports pain is very infrequent and dull when pain does occur. Discussed potential causes for scrotal cysts. Patient otherwise denies any bothersome urinary issues or concerns. He denies urinary urgency, urinary frequency, incontinence, nocturia, hematuria, dysuria, foul smelling urine, changes to urinary stream, flank pain, fever, and or chills. He is happy with his current voiding parameters. He otherwise offers no other issues or concerns at this time. [facility] Medical History Fatigue Excessive daytime sleepiness Witnessed apneic spells Loud snoring Vitamin D deficiency Mixed anxiety depressive disorder Mass of left testicle Obesity (BMI 30.0-34.9) Surgical History No pertinent past surgical history Family History Mother Depression Maternal Aunt Mental health disorder Father HTN (hypertension) Maternal Aunt Breast cancer, Onset Age: 40 CVA (cerebral vascular accident) Paternal Uncle Diabetes mellitus Social History Housing: House Patient Tobacco Use Status: Former Tobacco user e-Cigarette/Vaping Use: Never Used service: No Current occupational status: employed Cognitive needs: No Hearing needs: No Vision needs: No Review of Systems Const All systems reviewed & are unremarkable except as noted in HPI and below Eyes Reports no additional complaints ENT Reports no additional complaints Card Reports no additional complaints Resp Reports no additional complaints GI Reports no additional complaints Reports as per HPI Musc Reports no additional complaints Neuro Reports no additional complaints Psych Reports as per HPI Endo Reports no additional complaints Derek/Lymph Reports no additional complaints Aller/Immun Reports no additional complaints Physical Exam Const General: cooperative, healthy appearing, comfortable, no acute distress, well developed, alert and awake Orientation/consciousness: patient oriented x3 Limitations: no limitations HEENT Head: Yes normal to inspection, Yes normocephalic and Yes atraumatic Ears: hearing grossly normal bilaterally Eyes General: appearance normal, both eyes and all related structures Neck Neck: Yes normal visual inspection and Yes trachea midline Chest Chest palpation & inspection: normal inspection of the chest Resp Effort & Inspection: normal respiratory effort and able to speak in complete sentences Cardio Rate: regular rate GI Inspection: Yes normal to inspection General: Yes no CVA tenderness Back/Spine/Pelvis Back: no CVA tenderness Skin General skin exam: no rashes or lesions noted Neuro General: patient oriented x3 Extrem General: Yes normal to inspection Psych Appearance: grossly normal and well kempt Mental Status: mental status grossly normal Speech and movement: Normal speech and movement present and Clear speech present Affect: normal affect Attitude: cooperative Thought process: Normal thought process present Thought content: Normal thought content present Insight: Good insight present (Psych) Judgement: Good judgement present (Psych) Results AMB Urinalysis, Automated UA Leukoctes 0 Shanel/uL Last Edit by Franc Gage on 03/13/24 14:44 UA Nitrite Negative Last Edit by Franc Gage on 03/13/24 14:44 UA Urobilinogen 0.2 mg/dL Last Edit by Franc Gage on 03/13/24 14:44 UA Protein 0 mg/dL Last Edit by Franc Gage on 03/13/24 14:44 UA pH 6.0 Last Edit by Franc Gage on 03/13/24 14:44 UA Blood 10 Sb/uL Last Edit by Franc Gage on 03/13/24 14:44 UA Specific Holden 1.015 Last Edit by Franc Gage on 03/13/24 14:44 UA Ketone Negative Last Edit by Franc Gage on 03/13/24 14:44 UA Bilirubin 0 mg/dL Last Edit by Franc Gage on 03/13/24 14:44 UA Glucose 0 mg/dL Last Edit by Franc Gage on 03/13/24 14:44 Results Reviewed Results Reviewed: Laboratory Last Values Urine pH (Auto) 6.0 03/13/24 14:39 Specific Holden (Auto) 1.015 03/13/24 14:39 Urine Protein (Auto) 0 mg/dL 03/13/24 14:39 Glucose (UA)(Auto) 0 mg/dL 03/13/24 14:39 Urine Ketones (Auto) Negative 03/13/24 14:39 Urine Blood (Auto) 10 Sb/uL 03/13/24 14:39 Urine Nitrite (Auto) Negative 03/13/24 14:39 Urine Bilirubin (Auto) 0 mg/dL 03/13/24 14:39 Urine Urobilinogen (Auto) 0.2 mg/dL 03/13/24 14:39 Leukocyte Esterase (Auto) 0 Shanel/uL 03/13/24 14:39 Date of Service: 02/27/24 EXAMINATION: US SCROTUM FINDINGS: RIGHT: Right testicle measures 4.7 x 2.3 x 3.3 cm, volume 18.7 mL. No focal testicular parenchymal lesions are visualized. Spectral Doppler analysis of the arterial and venous flow is normal in the right testis. 0.2 x 0.2 x 0.3 cm cyst in the right epididymal head. No right hydrocele or varicocele is seen. Right epididymal Doppler flow is normal. LEFT: Left testicle measures 4.3 x 2.4 x 3.5 cm, volume 18.9 mL. No focal testicular lesion appreciated. Spectral Doppler analysis of the arterial and venous flow is normal in the left testis. There is a 1.7 x 1.6 x 1.9 cm heterogeneous, hypoechoic solid mass with internal vascularity which appears to be located in the region of the left epididymal head on the current exam. The previous exam of 09/09/2023 demonstrated a similar-appearing 1.6 x 1.8 x 1.6 cm mass with internal vascularity which had been felt at that time to be located in the epididymal tail. Radiologist was not in attendance at the time of this exam, and images were later provided for interpretation on 03/20/2024. After detailed discussion at this time with sonographers Salima Quintanilla and Maria L Mckeon, it was felt that the differences in perceived location of this left epididymal mass were more likely attributable to mobility of scrotal structures including testicles and epididymides which limited ability to replicate and confirm location of this mass relative to epididymal head, body and tail. Recommend attention to this lesion and particularly to localization when the patient returns for followup imaging. A 0.4 x 0.3 x 0.4 cm cyst with septation is located within the left epididymis and was felt by the instant print operator to be located in the epididymal tail on the current exam. Previous exam demonstrated a 0.4 cm cyst with septation which was felt to be located in the epididymal head. Again, discrepancies in location within the epididymis could be attributable to variations in mobility/positioning. Recommend attention to these structures when patient returns for additional imaging. No left hydrocele or varicocele is seen. Left epididymal Doppler flow is normal. IMPRESSION: 1. There is a 1.7 x 1.6 x 1.9 cm heterogeneous, solid mass with internal vascularity which appears to be located in the region of the left epididymal head on the current exam. The previous exam of 08/23/2023 demonstrated a similar-appearing 1.6 x 1.8 x 1.6 cm mass with internal vascularity which had been felt at that time to be located in the epididymal tail. Radiologist was not in attendance at the time of this exam, and images were later provided for interpretation on 03/20/2024. After detailed discussion at this time with sonographers Salima Quintanilla and Maria L Mckeon, it was felt that the differences in perceived location of this left epididymal mass were more likely attributable to mobility of scrotal structures including testicles and epididymides which limited ability to replicate and confirm location of this mass relative to epididymal head, body and tail. Recommend attention to this lesion and particularly to appropriate localization when the patient returns for followup imaging. Recommend followup ultrasound in 2-3 months based on the clinical assessment. Differential considerations for this solid mass include both benign and malignant etiologies. Correlation with clinical examination and urology consultation recommended to determine further management. 2. A 0.4 cm cyst with septation is located within the left epididymis and was felt by the instant print operator to be located in the epididymal tail on the current exam. Previous exam demonstrated a 0.4 cm cyst with septation which was felt to be located in the epididymal head. Again, discrepancies in location within the epididymis could be attributable to variations in mobility/positioning. Recommend attention to these structures when patient returns for additional imaging. Assessment & Plan Assessment & Plan (1) Epididymal cyst: Code(s): N50.3 - Cyst of epididymis Category: Medical Plan In office urinalysis results reviewed with the patient today; as noted above. Recent scrotal ultrasound results reviewed with the patient today; as noted above. Discussed further treatment options. Discussed continuing self-exams. Will continue with surveillance monitoring at this time. Scrotal ultrasound in 1 year He denies any bothersome urinary issues or concerns. He reports be happy with current voiding parameters. Follow-up in 1 year with imaging to be completed prior; or sooner with any issues, concerns, and or questions. Orders: Orders US scrotum 1 Year N50.3 - Cyst of epididymis AMB Urinalysis Automated 03/13/24 Z13.9 - Encounter for screening, unspecified Patient Instructions: The patient had an opportunity to ask questions regarding the treatment plan. All questions were answered. Physical exam, labs, and imaging were discussed and reviewed in detail. As well as risks, benefits, and discussion of treatment choices. No major barriers to understanding were identified. The patient expressed understanding and agreement with the above treatment plan. The patient was made aware they should contact our office by phone for worsening of their current condition, the appearance of new symptoms, or with any questions or concerns. Compliance is encouraged with any medications and follow up testing that is ordered. It is a privilege to be allowed the opportunity to participate in? your urological care.? Again, if you have any questions or concerns If you have any questions or concerns please do not hesitate to contact me. The office is [phone]. This note is constructed using voice recognition software. While every effort has been made to ensure accuracy anodizing line operator errors may have been included. Yours sincerely, EDWIN Barrett-RAFA Coding Level of Care Code Est Pt Level 3 (65746) Diagnoses Epididymal cyst N50.3
== END 2024-03-13 14:45 | disposition home or self-care (01) ==
PROVIDERS: PCP Internal Medicine; Visit Provider Nurse Practitioner Family
DX: N50.3 Cyst of epididymis (principal)
CPT/HCPCS: 99213

== ENCOUNTER → 2024-03-13 14:14 | Outpatient (BNVA) | payer OTHER, SELFPAY | PROVIDERS: PCP Internal Medicine; Visit Provider Nurse Practitioner Family | DX: N50.3 Cyst of epididymis (principal) | CPT/HCPCS: 81003 ==

== ENCOUNTER 2024-05-23 14:01 | Outpatient (AMB) | payer OTHER, SELFPAY ==
--- NOTE | 2024-05-23 14:05 | MHC.OFFVIS ---
Vital Signs 05/23/24 14:06 Height 6 ft Weight 253 lb 2 oz BMI 34.3 BP 120/70 Blood Pressure Location Rt brachial Position Sitting Respiration 16 Pulse 97 Pulse Source Pulse Oximeter Pulse Oximetry (%) 98 Oxygen Delivery Method Room Air Intake Visit Reasons: Follow up Snoring Intake Note: Pt presents for follow up for snoring and to discuss HST. Telephone Triage Nurse Required: No Allergies No Known Allergies Allergy (Verified 05/23/24 14:06) Medication List - Last Reconciled 05/23/24 by Allyson Suarez MD No Known Home Meds HPI Comments Details: 29y/o Right handed male comes for follow up of snoring and hypersomnia, abnormal movements . Sleep Hygiene- Sleep time 11pm Wake time 6am coffee/stimulant use- none Phone Electronics use-yes Exercise-none Bedroom comfort- good [facility] Medical History Fatigue Excessive daytime sleepiness Witnessed apneic spells Loud snoring Vitamin D deficiency Mixed anxiety depressive disorder Mass of left testicle Obesity (BMI 30.0-34.9) Surgical History No pertinent past surgical history Family History Mother Depression Maternal Aunt Mental health disorder Father HTN (hypertension) Maternal Aunt Breast cancer, Onset Age: 40 CVA (cerebral vascular accident) Paternal Uncle Diabetes mellitus Social History Housing: House Patient Tobacco Use Status: Former Tobacco user e-Cigarette/Vaping Use: Never Used service: No Current occupational status: employed Cognitive needs: No Hearing needs: No Vision needs: No Physical Exam Vital Signs: Last Vital Signs Pulse 97 05/23/24 14:06 Resp 16 05/23/24 14:06 BP 120/70 05/23/24 14:06 Pulse Ox 98 05/23/24 14:06 Oxygen Delivery Method Room Air 05/23/24 14:06 BMI result Body Mass Index 34.3 Const General: cooperative, healthy appearing and comfortable Nutritional Appearance: overweight Orientation/consciousness: patient oriented x3 Eyes Pupils: Equal, round and reactive pupils present Neuro General: patient oriented x3, gait normal, tone normal, moves all extremities and no focal motor deficits Cranial nerves: Yes Equal, round and reactive pupils present, Yes Bilaterally intact EOM present, Yes Nystagmus not present, Yes Normal facial strength present and Yes Midline tongue present Cognition (Neuro): normal cognition Gait exam (Neuro): Normal gait present Coordination: [id number] test normal Assessment & Plan Assessment & Plan (1) Loud snoring: Code(s): R06.83 - Snoring Category: Medical (2) Witnessed apneic spells: Code(s): R06.81 - Apnea, not elsewhere classified Category: Medical (3) Excessive daytime sleepiness: Code(s): G47.19 - Other hypersomnia Category: Medical Plan Home sleep test was inconclusive. I will schedule him for an in lab sleep study for further assessment. Will check his Vitamin TSH Vit B 12 for hypersomnia. Orders: Orders RT PSG in-lab sleep study Today G47.19 - Other hypersomnia, R06.81 - Apnea, not elsewhere classified, R06.83 - Snoring Coding Level of Care Code Est Pt Level 4 (20885) Diagnoses Loud snoring R06.83 Witnessed apneic spells R06.81 Excessive daytime sleepiness G47.19 Reese Sleepiness Scale Questions Sitting and reading: slight chance of dozing Watching TV: moderate chance of dozing Sitting inactive in a theater, movie etc.: slight chance of dozing As a passenger in a car for an hour without break: high chance of dozing Lying down in the afternoon when circumstances permit: high chance of dozing Sitting and talking to someone: would never doze Sitting quietly after lunch without alcohol: moderate chance of dozing In a car, while stopped for a few minutes in the traffic: would never doze ESS < 10: normal, ESS > 12: pathologic: 12
[2024-05-23 14:06] VITALS: BP 120/70; PULSE 97; RESP 16; O2SAT 98; BMI 34.3
== END 2024-05-23 15:12 | disposition home or self-care (01) ==
PROVIDERS: PCP Internal Medicine; Visit Provider Psychiatry & Neurology Neurology
DX: R06.83 Snoring (principal); R06.81 Apnea, not elsewhere classified; G47.19 Other hypersomnia
CPT/HCPCS: 99214

== ENCOUNTER → 2024-05-23 14:01 | Outpatient (BNVA) | payer OTHER, SELFPAY | PROVIDERS: PCP Internal Medicine; Visit Provider Psychiatry & Neurology Neurology | DX: R53.83 Other fatigue (principal); R06.81 Apnea, not elsewhere classified; R06.83 Snoring; G47.19 Other hypersomnia ==

== ENCOUNTER 2024-05-23 14:27 | Outpatient (REF) | payer OTHER, SELFPAY ==
[2024-05-23 18:50] LABS: Ferritin 94 ng/mL (20-250); TSH reflex Free T4 0.58 uIU/mL (0.32-4.0)
[2024-05-23 19:07] LABS: Folate 7.7 ng/mL (> or = 4.0); Vitamin B12 449 pg/mL (200-900)
== END 2024-05-23 14:28 | disposition home or self-care (01) ==
LOC: HO.HKASLDS 14:27
PROVIDERS: Visit Provider Psychiatry & Neurology Neurology
DX: R53.83 Other fatigue (principal)
CPT/HCPCS: 36415; 82607; 82728; 82746; 84443

== ENCOUNTER → 2024-06-17 20:30 | Outpatient (REF) | payer OTHER, SELFPAY | LOC: HO.SL 20:30 | PROVIDERS: PCP Internal Medicine; Visit Provider Psychiatry & Neurology Neurology | DX: Z13.89 Encounter for screening for other disorder (principal) ==

== ENCOUNTER 2024-09-20 12:46 | Outpatient (REF) | payer OTHER, SELFPAY ==
--- OUTSIDE RECORDS SUMMARY | 2024-09-20 17:24 | XMS_ITS | Encounter Summary ---
Author Organization [facility] Address [address] [place] [address] Phone Care Team Providers Care Bituminous Distributor Operator Name Role Phone Marissa Guzmán NP Primary Care Provider Lucian ching Encounter Details Date Type Department Care Team (Late st Contact Info) Description 03/03/2012 Documentation EM Family Medicine [address] [place], [place] [phone] Family Medicine, Physician [address] [place] [address] Social History Tobacco Use Types Packs/Day Years Used Date Smoking Tobacco: Never Assessed Sex and Gender Information Value Date Recorded Sex Assigned at Not on file Legal Sex Male 5:09 PM EDT Gender Identity Not on file Sexual Orientation Not on file documented as of this encounter Plan of Treatment Not on file documented as of this encounter Visit Diagnoses Not on filedocumented in this encounter Care Teams Bituminous Distributor Operator Relationship Specialty Start Date End Date Marissa Guzmán NP PCP - General 04/01/17 02/10/23 documented as of this encounter
--- OUTSIDE RECORDS SUMMARY | 2024-09-20 17:24 | XMS_ITS | Encounter Summary ---
Author Organization [facility] Address [address] [place] [id number] Phone Care Team Providers Care Department Mgr Name Role Phone Marissa Guzmán NP Primary Care Provider Lucian ching Encounter Details Date Type Department Care Team (Late st Contact Info) Description 04/07/2017 Conversion Encounter [facility] - [address] [address] Social History Tobacco Use Types Packs/Day Years Used Date Smoking Tobacco: Never Comments:Never smoker Sex and Gender Information Value Date Recorded Sex Assigned at Not on file Legal Sex Male 5:09 PM EDT Gender Identity Not on file Sexual Orientation Not on file documented as of this encounter Plan of Treatment Not on file documented as of this encounter Visit Diagnoses Not on filedocumented in this encounter Care Teams Department Mgr Relationship Specialty Start Date End Date Marissa Guzmán NP PCP - General 04/01/17 02/10/23 documented as of this encounter
--- OUTSIDE RECORDS SUMMARY | 2024-09-20 17:24 | XMS_ITS | Encounter Summary ---
Author Organization [facility] Address [address] [place] [address] Phone Care Team Providers Care Block Captain Name Role Phone Marissa Guzmán NP Primary Care Provider Lucian ching Encounter Details Date Type Department Care Team (Late st Contact Info) Description 08/10/2016 Documentation EM Family Medicine [address] [place], [place] [phone] Family Medicine, Physician [address] [place] [address] Social History Tobacco Use Types Packs/Day Years [...] on filedocumented in this encounter Care Teams Block Captain Relationship Specialty Start Date End Date Marissa Guzmán NP PCP - General 04/01/17 02/10/23 documented as of this encounter
--- OUTSIDE RECORDS SUMMARY | 2024-09-20 17:24 | XMS_ITS | Clinical Summary ---
Author Organization [facility] Address [address] [place] [address] Phone Care Team Providers Care Sausage Tier Name Role Phone Unavailable Primary Care Provider Unavailabl e Immunizations Name Administration Dates Next Due DTaP 5 08/21/2000, 7,1996, 997,1996 H1N1 07/21/2009 HPV, Quadrivalent 06/13/2012,02/02/2012,01/06/20 11 Hep A, Adult 01/29/2016 Hep A, ped/adol 01/05/2011 Hep B, ped/adol 1996,1996,1996 Hib (PRP-T) 1996,1996,1996 IPV 1996,1996,1996 Influenza Split 06/19/2013,08/30/2012 Influenza, injectable, trivalent 08/20/2009,07/22,07/17/2007 MMR 08/21/2000,06/21/1997 Meningococcal Conj (Menactra) MCV4P 01/29/2016,1 10/07/2007 OPV 08/21/2000 Tdap 08/06/2008 Varicella 08/06/2008,07/21/1998 Family History Relation Name Status Comments Father Alive Father: Alive a nd well Maternal Grandfather Materna l grandfather: High BP, heart disease,Diabeti Mother Alive Mother: Anemia Other 1 No family histo ry of Migraines, Family history of Cancer, No family history of *CVA/Stroke, Family history of Asthma, Family history of Hyperlipidemia, No family history of Seizure disorder, Family history of *Heart Disease, No family history of ADD/ADHD, Family history of Cancer, breast, No family history of Strabismus, No family history of Developmental dislocation of hip, No family history of Obesity, No family history of Deafness, Family history of Diabetes mellitus, No family history of *Sudden /[place] under 55 Other 2 No family histo ry of Migraines, Family history of Cancer, No family history of *CVA/Stroke, Family history of Asthma, Family history of Hyperlipidemia, No family history of Seizure disorder, Family history of *Heart Disease, No family history of ADD/ADHD, Family history of Cancer, breast, No family history of Strabismus, No family history of Developmental dislocation of hip, No family history of Obesity, No family history of Deafness, Family history of Diabetes mellitus, No family history of *Sudden /[place] under 55 Paternal Grandmother Paterna l grandmother: High BP, Asthma Social History Tobacco Use Types Packs/Day Years Used Date Smoking Tobacco: Never Comments:Never smoker Sex and Gender Information Value Date Recorded Sex Assigned at Not on file Legal Sex Male 5:09 PM EDT Gender Identity Not on file Sexual Orientation Not on file Last Filed Vital Signs Vital Sign Reading Time Taken Comments Blood Pressure 145/78 02/25/2016 12:00 AM EDT Pulse 71 02/25/2016 12:00 AM EDT Temperature 36.5 ??C (97.7 ??F) 02/25/2016 1 2:00 AM EDT Respiratory Rate - - Oxygen Saturation 99% 12/11/2010 12: 00 AM EDT Inhaled Oxygen Concentration - - Weight 88.8 kg (195 lb 12.8 oz) 016 12:00 AM EDT Height 184.2 cm (6' 0.5 ) 02/25/2016 12 :00 AM EDT Body Mass Index 26.19 02/25/2016 12:00 AM EDT Plan of Treatment Health Maintenance Due Date Last Done Comments Consider Men B Vaccine (1 of 2 - Bexsero 2-dose series) 2012 DTaP,Tdap,and Td Vaccines (7 - Td or Tdap) 08/06/2018 08/06/2008, 08/21/2000, 06/21/1997, Additional history exists Influenza Vaccines (#1) 2024 06/19/20 13, 08/30/2012, 08/20/2009, Additional history exists COVID-19 Vaccine ( season) 2024 HIB Vaccines Aged Out 1996, 09/23, 1996 No longer eligible based on patient's age to complete this topic Hepatitis B Vaccines Completed 1996, 1996, 1996 IPV Vaccines Completed 08/21/2000, 11/22, 1996, Additional history exists MMR Vaccines Completed 08/21/2000, 06/21/1997 Varicella Vaccines Completed 08/06/2008, 07/21/1998 HPV Vaccines Completed 06/13/2012, 01/20, 01/05/2011 Hepatitis A Vaccines Completed 01/29/2016, 01/06/20 11 Meningococcal Vaccine Aged Out 01/29/2016, 008 No longer eligible based on patient's age to complete this topic Men B Vaccine Aged Out No longer elig ible based on patient's age to complete this topic Pneumococcal Vaccine Aged Out No long er eligible based on patient's age to complete this topic
--- OUTSIDE RECORDS SUMMARY | 2024-09-20 17:24 | XMS_ITS | Encounter Summary ---
Author Organization [facility] Address [address] [place] [address] Phone Care Team Providers Care Pension Adviser Name Role Phone Marissa Guzmán NP Primary Care Provider Lucian ching Encounter Details Date Type Department Care Team (Late st Contact Info) Description 04/08/2014 Documentation EM Family Medicine [address] [place], [place] [phone] Family Medicine, Physician [address] [place] [address] Social History Tobacco Use Types Packs/Day Years [...] on filedocumented in this encounter Care Teams Pension Adviser Relationship Specialty Start Date End Date Marissa Guzmán NP PCP - General 04/01/17 02/10/23 documented as of this encounter
--- OUTSIDE RECORDS SUMMARY | 2024-09-20 17:24 | XMS_ITS | Encounter Summary ---
Author Organization [facility] Address [address] [place] [address] Phone Care Team Providers Care Idea Man Name Role Phone Marissa Guzmán NP Primary Care Provider Lucian ching Encounter Details Date Type Department Care Team (Late st Contact Info) Description 09/29/2016 Documentation EM Family Medicine [address] [place], [place] [phone] Family Medicine, Physician [address] [place] [address] Social History Tobacco Use Types Packs/Day Years [...] on filedocumented in this encounter Care Teams Idea Man Relationship Specialty Start Date End Date Marissa Guzmán NP PCP - General 04/01/17 02/10/23 documented as of this encounter
--- OUTSIDE RECORDS SUMMARY | 2024-09-20 17:24 | XMS_ITS | Encounter Summary ---
Author Organization [facility] Address [address] [place] [address] Phone Care Team Providers Care Fusing Machine Feeder Name Role Phone Marissa Guzmán NP Primary Care Provider Lucian ching Encounter Details Date Type Department Care Team (Late st Contact Info) Description 10/14/2016 Documentation EM Family Medicine [address] [place], [place] [phone] Family Medicine, Physician [address] [place] [address] Social History Tobacco Use Types Packs/Day Years [...] on filedocumented in this encounter Care Teams Fusing Machine Feeder Relationship Specialty Start Date End Date Marissa Guzmán NP PCP - General 04/01/17 02/10/23 documented as of this encounter
[2024-09-20 18:33] LABS: Alanine Aminotransferase 25 U/L (0-40); Aspartate Amino Transferase 20 U/L (5-37); Cholesterol 192 mg/dL (<200); Glucose Fasting 88 mg/dL (60-99); HDL Cholesterol 41 mg/dL (>40); LDL Cholesterol Calculated 124 mg/dL (<100); Triglycerides 135 mg/dL (<150)
[2024-09-20 18:52] LABS: Vitamin D 25-OH Total 26.3 ng/mL (>30)
== END 2024-09-20 12:47 | disposition home or self-care (01) ==
LOC: HO.HMGCLDS 12:46
PROVIDERS: PCP Internal Medicine; Visit Provider Internal Medicine
DX: Z00.01 Encounter for general adult medical examination with abnormal findings (principal); R06.83 Snoring; R06.81 Apnea, not elsewhere classified; N50.3 Cyst of epididymis; E55.9 Vitamin D deficiency, unspecified; E78.5 Hyperlipidemia, unspecified; E66.9 Obesity, unspecified; Z68.34 Body mass index [BMI] 34.0-34.9, adult; Z13.30 Encounter for screening examination for mental health and behavioral disorders, unspecified; Z71.89 Other specified counseling
CPT/HCPCS: 36415; 80061; 82306; 82947; 84450; 84460; 96127

== ENCOUNTER 2024-12-24 15:01 | Outpatient (AMB) | payer OTHER, SELFPAY ==
--- NOTE | 2024-12-24 15:03 | A.OFFVIS_ITS ---
Vital Signs 12/24/24 15:04 Height 6 ft Weight 249 lb 2 oz BMI 33.8 BP 124/70 Blood Pressure Location Rt brachial Position Sitting Pulse 81 Pulse Source Pulse Oximeter Pulse Oximetry (%) 99 Oxygen Delivery Method Room Air Intake Visit Reasons: Follow up Snoring Intake Note: Patient presents follow up Sleep. PSG in chart AHI-0, Oxygen WESLEY 91%. Allergies No Known Allergies Allergy (Verified 12/24/24 15:06) HPI Comments Details: 29 year old male is here for a f/u of sleep apnea. HST c/w AHI 0 and Oxygen is Wesley to 91% He c/o loud snoring and grinding his teeth. He continues to have brain fog, mood irritability. His memory is stable. He goes to bed at 1130pm and wakes up at 6am. He works for [employer]. He does not, vape, smoke, or drink alcohol. [facility] Medical History (Updated 12/24/24 @ 15:30 by Steve Baker PA-C) Fatigue Dyslipidemia Excessive daytime sleepiness Witnessed apneic spells Loud snoring Vitamin D deficiency Mixed anxiety depressive disorder Mass of left testicle Obesity (BMI 30.0-34.9) Surgical History No pertinent past surgical history Family History Mother Depression Maternal Aunt Mental health disorder Father HTN (hypertension) Maternal Aunt Breast cancer, Onset Age: 40 CVA (cerebral vascular accident) Paternal Uncle Diabetes mellitus Social History Housing: House Patient Tobacco Use Status: Former Tobacco user e-Cigarette/Vaping Use: Never Used service: No Current occupational status: employed Cognitive needs: No Hearing needs: No Vision needs: No Review of Systems Const All systems reviewed & are unremarkable except as noted in HPI and below Physical Exam Vital Signs: Last Vital Signs Pulse 81 12/24/24 15:04 BP 124/70 12/24/24 15:04 Pulse Ox 99 12/24/24 15:04 Oxygen Delivery Method Room Air 12/24/24 15:04 BMI result Body Mass Index 33.8 Const General: cooperative, comfortable and no acute distress Orientation/consciousness: patient oriented x3 Eyes Pupils: Equal, round and reactive pupils present Resp Effort & Inspection: normal respiratory effort and able to speak in complete sentences Neuro General: patient oriented x3 and moves all extremities Cranial nerves: Yes Equal, round and reactive pupils present, Yes Normal accommodation reflex present, Yes Bilaterally intact EOM present, Yes Normal facial strength present, Yes Midline tongue present, Yes Ability to bilaterally rotate head present and Yes Ability to bilaterally elevate shoulders present Motor exam (neuro): 5/5 motor strength present throughout and Normal motor muscle tone present throughout Psych Appearance: grossly normal Thought process: Normal thought process present Thought content: Normal thought content present Results Reviewed Results Reviewed: PSG 12/03/2024 AHI 0 and Oxygen Wesley to 91%. Assessment & Plan Assessment & Plan (1) Loud snoring: Code(s): R06.83 - Snoring Category: Medical Plan: HST c/w AHI 0 and oxygen nadirs to 0%. Will send him for Sleep dentistry. (2) Fatigue: Code(s): R53.83 - Other fatigue Category: Medical Qualifiers: Fatigue type: unspecified Qualified Code(s): R53.83 - Other fatigue Plan: Labs to r/o deficiencies. CBC CMP TSH / B12/ Folate MMA/ Homocystieine, Ferritin. Orders: Orders Comprehensive Met. Panel 12/24/24 R53.83 - Other fatigue Complete Blood Count no Diff 12/24/24 R53.83 - Other fatigue Methylmalonic Acid 12/24/24 R53.83 - Other fatigue, G47.9 - Sleep disorder, unspecified Vitamin B12 and Folate 12/24/24 R53.83 - Other fatigue TSH reflex Free T4 12/24/24 R53.83 - Other fatigue Homocysteine 12/24/24 R53.83 - Other fatigue, G47.9 - Sleep disorder, unspecified Ferritin 12/24/24 R53.83 - Other fatigue Vitamin D 25-OH Total 12/24/24 R53.83 - Other fatigue Referrals Dentistry Referral R06.83 - Snoring Patient Instructions: Sleep Hygiene provided: set a scheduled bedtime and wake time to help regulate the circadian rhythm and balance the release of pituitary hormones. Sleep in a dark room, temperatures below 68 degrees, and no devices n bed. Limit caffeinated products 6 hours prior to bed, and limit fluids 2-4 hours prior to bed. Gentle night yoga, diffusing essential oils, and playing soft music can be relaxing. Snoring: mouth gaurd use, or taping, the mouth may be helpful to train yourself to become a nose breather. Coding Level of Care Code Est Pt Level 4 (76072) Diagnoses Loud snoring R06.83 Fatigue, unspecified type R53.83 Fatigue type: unspecified Time Spent (min) 15 Comment Snoring
[2024-12-24 15:04] VITALS: BP 124/70; PULSE 81; O2SAT 99; BMI 33.8
--- OUTSIDE RECORDS SUMMARY | 2024-12-24 16:37 | XMS_ITS | Encounter Summary ---
Author Organization [facility] Address [address] [place] [address] Phone Care Team Providers Care Pipe Turner Name Role Phone Marissa Guzmán NP Primary Care Provider Lucian ching Encounter Details Date Type Department Care Team (Late st Contact Info) Description 08/10/2016 Documentation EM Family Medicine [address] [place], [place] [phone] Family Medicine, Physician [address] [place] [address] Social History Tobacco Use Types Packs/Day Years [...] on filedocumented in this encounter Care Teams Pipe Turner Relationship Specialty Start Date End Date Marissa Guzmán NP PCP - General 04/01/17 02/10/23 documented as of this encounter
--- OUTSIDE RECORDS SUMMARY | 2024-12-24 16:37 | XMS_ITS | Clinical Summary ---
Author Organization [facility] Address [address] [place] [address] Phone Care Team Providers Care Penetration Tester Name Role Phone Unavailable Primary Care Provider Unavailabl e Immunizations Immunization Administration Dates Next Due DTaP 5 08/21/2000, [...] Diabetes mellitus, No family history of *Sudden /[place] under 55 Other 2 No family histo [...] Diabetes mellitus, No family history of *Sudden /[place] under 55 Paternal Grandmother Paterna l grandmother: [...] Health Maintenance Due Date Last Done Comments DTaP,Tdap,and Td Vaccines (7 - Td or [...]
--- OUTSIDE RECORDS SUMMARY | 2024-12-24 16:37 | XMS_ITS | Encounter Summary ---
Author Organization [facility] Address [address] [place] [address] Phone Care Team Providers Care Lead Generator Name Role Phone Marissa Guzmán NP Primary Care Provider Lucian ching Encounter Details Date Type Department Care Team (Late st Contact Info) Description 03/03/2012 Documentation EM Family Medicine [address] [place], [place] [phone] Family Medicine, Physician [address] [place] [address] Social History Tobacco Use Types Packs/Day Years [...] on filedocumented in this encounter Care Teams Lead Generator Relationship Specialty Start Date End Date Marissa Guzmán NP PCP - General 04/01/17 02/10/23 documented as of this encounter
--- OUTSIDE RECORDS SUMMARY | 2024-12-24 16:37 | XMS_ITS | Encounter Summary ---
Author Organization [facility] Address [address] [place] [address] Phone Care Team Providers Care Automatic Edger Name Role Phone Marissa Guzmán NP Primary Care Provider Lucian ching Encounter Details Date Type Department Care Team (Late st Contact Info) Description 04/08/2014 Documentation [facility] [address] [place], [place] [phone] Family Medicine, Physician [address] [place] [address] Social History Tobacco Use Types Packs/Day Years [...] on filedocumented in this encounter Care Teams Automatic Edger Relationship Specialty Start Date End Date Marissa Guzmán NP PCP - General 04/01/17 02/10/23 documented as of this encounter
--- OUTSIDE RECORDS SUMMARY | 2024-12-24 16:37 | XMS_ITS | Encounter Summary ---
Author Organization [facility] Address [address] [place] [address] Phone Care Team Providers Care Second Butler Name Role Phone Marissa Guzmán NP Primary Care Provider Lucian ching Encounter Details Date Type Department Care Team (Late st Contact Info) Description 04/07/2017 Conversion Encounter [facility] - [address] [address] Social History Tobacco Use Types Packs/Day Years [...] on filedocumented in this encounter Care Teams Second Butler Relationship Specialty Start Date End Date Marissa Guzmán NP PCP - General 04/01/17 02/10/23 documented as of this encounter
--- OUTSIDE RECORDS SUMMARY | 2024-12-24 16:37 | XMS_ITS | Encounter Summary ---
Author Organization [facility] Address [address] [place] [address] Phone Care Team Providers Care Wire Worker Name Role Phone Marissa Guzmán NP Primary Care Provider Lucian ching Encounter Details Date Type Department Care Team (Late st Contact Info) Description 10/14/2016 Documentation EM Family Medicine [address] [place], [place] [phone] Family Medicine, Physician [address] [place] [address] Social History Tobacco Use Types Packs/Day Years [...] on filedocumented in this encounter Care Teams Wire Worker Relationship Specialty Start Date End Date Marissa Guzmán NP PCP - General 04/01/17 02/10/23 documented as of this encounter
--- OUTSIDE RECORDS SUMMARY | 2024-12-24 16:37 | XMS_ITS | Encounter Summary ---
Author Organization [facility] Address [address] [place] [address] Phone Care Team Providers Care Brick Unloader Tender Name Role Phone Marissa Guzmán NP Primary Care Provider Lucian ching Encounter Details Date Type Department Care Team (Late st Contact Info) Description 09/29/2016 Documentation EM Family Medicine [address] [place], [place] [phone] Family Medicine, Physician [address] [place] [address] Social History Tobacco Use Types Packs/Day Years [...] on filedocumented in this encounter Care Teams Brick Unloader Tender Relationship Specialty Start Date End Date Marissa Guzmán NP PCP - General 04/01/17 02/10/23 documented as of this encounter
== END 2024-12-24 15:27 | disposition home or self-care (01) ==
LOC: HO.HSMS 15:02
PROVIDERS: PCP Internal Medicine; Visit Provider Physician Assistant Medical
DX: R06.83 Snoring (principal); R53.83 Other fatigue
CPT/HCPCS: 99214

== ENCOUNTER → 2024-12-24 15:01 | Outpatient (BNVA) | payer OTHER, SELFPAY | PROVIDERS: PCP Internal Medicine; Visit Provider Physician Assistant Medical ==

== ENCOUNTER 2025-03-04 09:59 | Outpatient (REF) | payer OTHER, SELFPAY ==
--- NOTE | ~2025-03-04 | US_ITS ---
CLINICAL HISTORY: N50.3 - Cyst of epididymis US Scrotum with Doppler Comparison: US/ID/SR - US SCROTUM - 02/27/24 08:42 EDT US/SR - US SCROTUM - 08/23/23 13:53 EST Findings: Right testicle normal echotexture, 4.5 x 2.1 x 3.4 cm. Left testicle normal echotexture, 4.7 x 2.2 x 3.2 cm. Color Doppler and arterial/venous spectral tracings of both testicles within normal limits. The left epididymis again demonstrates a solid 1.7 x 1.6 x 1.9 cm rounded heterogeneous , mildly vascular mass. Small left epididymal cyst also again noted. No hydroceles or varicoceles. IMPRESSION: The testicles are normal. Stable sized, rounded solid mildly vascular epididymal mass, likely benign adenomatoid lesion. One additional 12 month follow-up could be considered. This document has been electronically signed by: Yoshi Solorzano MD on 03/05/2025 10:39:12
--- OUTSIDE RECORDS SUMMARY | 2025-03-04 10:37 | XMS_ITS | Encounter Summary ---
Author Organization [facility] Address [address] [place] [address] Phone Care Team Providers Care Locomotive Firer/Fireman Name Role Phone Marissa Guzmán NP Primary Care Provider Lucian ching Encounter Details Date Type Department Care Team (Late st Contact Info) Description 09/29/2016 Documentation EM Family Medicine [address] [place], [place] [phone] Family Medicine, Physician [address] [place] [address] Social History Tobacco Use Types Packs/Day Years [...] on filedocumented in this encounter Care Teams Locomotive Firer/Fireman Relationship Specialty Start Date End Date Marissa Guzmán NP PCP - General 04/01/17 02/10/23 documented as of this encounter
== END 2025-03-04 10:00 | disposition home or self-care (01) ==
LOC: HO.HMGCX 09:59
PROVIDERS: PCP Internal Medicine; Visit Provider Nurse Practitioner Family
DX: N50.3 Cyst of epididymis (principal)
CPT/HCPCS: 76870

== ENCOUNTER → 2025-03-04 10:01 | Outpatient (BNV) | payer OTHER, SELFPAY | PROVIDERS: PCP Internal Medicine; Visit Provider Radiology Vascular & Interventional Radiology | DX: N50.3 Cyst of epididymis (principal) | CPT/HCPCS: 76870 ==

== ENCOUNTER 2025-03-13 15:27 | Outpatient (REF) | payer OTHER, SELFPAY | END 2025-03-13 15:28 | disposition home or self-care (01) | LOC: HO.LAB 15:27 | PROVIDERS: PCP Internal Medicine; Visit Provider Nurse Practitioner Family | DX: N50.3 Cyst of epididymis (principal); R31.29 Other microscopic hematuria; Z13.9 Encounter for screening, unspecified | CPT/HCPCS: 81003; 88112 ==

== ENCOUNTER 2025-03-13 15:27 | Outpatient (AMB) | payer OTHER, SELFPAY ==
--- NOTE | 2025-03-13 15:28 | A.OFFVIS_ITS ---
Intake Visit Reasons: 1y/US(set) Intake Note: Patient presents for follow up visit on: Epididymal Cyst and Ultrasound Results Imagin03/05/25 Urology Medications: none Blood Thinner: none Butadiene Converter Operator Required: No Accompanied by: Self / Same As Patient Allergies No Known Allergies Allergy (Verified 03/13/25 15:28) HPI Comments Details: Esdras is a very pleasant 28-year-old male patient of Dr. Lucia. He has a past medical history of anxiety, depression, dyslipidemia, mixed anxiety depressive disorder, obesity and vitamin-D deficiency. He presents to the office today for follow-up of his epididymal head cyst. In discussion with the patient today reports to be doing and feeling well. He denies having had any bothersome urinary issues or concerns since his last office visit here. Recent scrotal ultrasound results were reviewed 03/15 testicles are normal. Stable sized, rounded solid mildly vascular epididymal mass, likely benign adenomatoid lesion. One additional 12 month follow-up could be considered per radiology report. We did discussed stability in sizing over the last 12 months. He reports pain is very infrequent and dull when pain does occur. On assessment of the patient today palpable semi firm structure just below the epididymis. Otherwise no open areas, lesions, or masses palpated. We discussed potential causes for scrotal cy sts/lesions/masses as well as further interventions in risks and benefits of these interventions. He denies urinary urgency, urinary frequency, incontinence, nocturia, hematuria, dysuria, foul smelling urine, changes to urinary stream, flank pain, fever, and or chills. He is happy with his current voiding parameters. He otherwise offers no other issues or concerns at this time. [facility] Medical History Fatigue Dyslipidemia Excessive daytime sleepiness Witnessed apneic spells Loud snoring Vitamin D deficiency Mixed anxiety depressive disorder Mass of left testicle Obesity (BMI 30.0-34.9) Surgical History No pertinent past surgical history Family History Mother Depression Maternal Aunt Mental health disorder Father HTN (hypertension) Maternal Aunt Breast cancer, Onset Age: 40 CVA (cerebral vascular accident) Paternal Uncle Diabetes mellitus Social History Housing: House Patient Tobacco Use Status: Former Tobacco user e-Cigarette/Vaping Use: Never Used service: No Current occupational status: employed Cognitive needs: No Hearing needs: No Vision needs: No Review of Systems Const All systems reviewed & are unremarkable except as noted in HPI and below Eyes Reports no additional complaints ENT Reports no additional complaints Card Reports no additional complaints Resp Reports no additional complaints GI Reports no additional complaints Reports as per HPI Musc Reports no additional complaints Neuro Reports no additional complaints Psych Reports as per HPI Endo Reports no additional complaints Derek/Lymph Reports no additional complaints Aller/Immun Reports no additional complaints Physical Exam Const General: cooperative, healthy appearing, comfortable, no acute distress, well developed, alert and awake Orientation/consciousness: patient oriented x3 Limitations: no limitations HEENT Head: Yes normal to inspection, Yes normocephalic and Yes atraumatic Ears: hearing grossly normal bilaterally Eyes General: appearance normal, both eyes and all related structures Neck Neck: Yes normal visual inspection and Yes trachea midline Chest Chest palpation & inspection: normal inspection of the chest Resp Effort & Inspection: normal respiratory effort and able to speak in complete sentences Cardio Rate: regular rate GI Inspection: Yes normal to inspection General: Yes no CVA tenderness Penis: normal penis Meatus: meatus normal Testes: epididymal mass (as per HPI) on the left Back/Spine/Pelvis Back: no CVA tenderness Skin General skin exam: no rashes or lesions noted Neuro General: patient oriented x3 Extrem General: Yes normal to inspection Psych Appearance: grossly normal and well kempt Mental Status: mental status grossly normal Speech and movement: Normal speech and movement present and Clear speech present Affect: normal affect Attitude: cooperative Thought process: Normal thought process present Thought content: Normal thought content present Insight: Good insight present (Psych) Judgement: Good judgement present (Psych) Results AMB Urinalysis, Automated UA Leukoctes 0 Shanel/uL Last Edit by Delaney Robles MA on 03/13/25 15:56 UA Nitrite Negative Last Edit by Delaney Robles MA on 03/13/25 15:56 UA Urobilinogen 0.2 mg/dL Last Edit by Delaney Robles MA on 03/13/25 15:56 UA Protein 15 mg/dL Last Edit by Delaney Robles, RUTHIE on 03/13/25 15:56 UA pH 6.0 Last Edit by Delaney Robles, RUTHIE on 03/13/25 15:56 UA Blood 10 Sb/uL Last Edit by Delaney Robles, RUTHIE on 03/13/25 15:56 UA Specific [place] 1.025 Last Edit by Delaney Robles, RUTHIE on 03/13/25 15:56 UA Ketone Negative Last Edit by Delaney Robles, RUTHIE on 03/13/25 15:56 UA Bilirubin 0 mg/dL Last Edit by Delaney Robles, MA on 03/13/25 15:56 UA Glucose 0 mg/dL Last Edit by Delaney Robles, RUTHIE on 03/13/25 15:56 Results Reviewed Results Reviewed: Laboratory Last Values Urine pH (Auto) 6.0 03/13/25 15:49 Specific [place] (Auto) 1.025 03/13/25 15:49 Urine Protein (Auto) 15 mg/dL 03/13/25 15:49 Glucose (UA)(Auto) 0 mg/dL 03/13/25 15:49 Urine Ketones (Auto) Negative 03/13/25 15:49 Urine Blood (Auto) 10 Sb/uL 03/13/25 15:49 Urine Nitrite (Auto) Negative 03/13/25 15:49 Urine Bilirubin (Auto) 0 mg/dL 03/13/25 15:49 Urine Urobilinogen (Auto) 0.2 mg/dL 03/13/25 15:49 Leukocyte Esterase (Auto) 0 Shanel/uL 03/13/25 15:49 Date of Service: 03/04/25 Procedure(s): US scrotum Findings: Right testicle normal echotexture, 4.5 x 2.1 x 3.4 cm. Left testicle normal echotexture, 4.7 x 2.2 x 3.2 cm. Color Doppler and arterial/venous spectral tracings of both testicles within normal limits. The left epididymis again demonstrates a solid 1.7 x 1.6 x 1.9 cm rounded heterogeneous , mildly vascular mass. Small left epididymal cyst also again noted. No hydroceles or varicoceles. IMPRESSION: The testicles are normal. Stable sized, rounded solid mildly vascular epididymal mass, likely benign adenomatoid lesion. One additional 12 month follow-up could be considered. Assessment & Plan Assessment & Plan (1) Epididymal cyst: Code(s): N50.3 - Cyst of epididymis Category: Medical (2) Microscopic hematuria: Code(s): R31.29 - Other microscopic hematuria Category: Medical Plan In office urinalysis results with the patient today; as noted above. Recent scrotal ultrasound results with the patient today; as noted above. He currently denies any bothersome urinary issues or concerns. He reports be happy with current voiding parameters. We did discuss further intervention interventions in risks and benefits of these interventions. All questions were answered. Will proceed with surveillance monitoring at this time Will obtain scrotal ultrasound in 1 year. Follow-up in 1 year with imaging to be completed prior; or sooner with any issues, concerns, and or questions. Orders: Orders Urine Cytology Today R31.29 - Other microscopic hematuria AMB Urinalysis Automated Today Z13.9 - Encounter for screening, unspecified US scrotum 1 Year N50.3 - Cyst of epididymis Patient Instructions: The patient had an opportunity to ask questions regarding the treatment plan. All questions were answered. Physical exam, labs, and imaging were discussed and reviewed in detail. As well as risks, benefits, and discussion of treatment choices. No major barriers to understanding were identified. The patient expressed understanding and agreement with the above treatment plan. The patient was made aware they should contact our office by phone for worsening of their current condition, the appearance of new symptoms, or with any questions or concerns. Compliance is encouraged with any medications and follow up testing that is ordered. It is a privilege to be allowed the opportunity to participate in? your urological care.? Again, if you have any questions or concerns If you have any questions or concerns please do not hesitate to contact me. The office is [phone]. This note is constructed using voice recognition software. While every effort has been made to ensure accuracy shooter helper errors may have been included. Yours sincerely, LISS Barrett Coding Level of Care Code Est Pt Level 3 (48105) Diagnoses Epididymal cyst N50.3 Microscopic hematuria R31.29
--- OUTSIDE RECORDS SUMMARY | 2025-03-13 15:45 | XMS_ITS | Encounter Summary ---
Author Organization [facility] Address [address] [place] [address] Phone Care Team Providers Care Paperhanger Assistant Name Role Phone Marissa Guzmán NP Primary Care Provider Lucian ching Encounter Details Date Type Department Care Team (Late st Contact Info) Description 09/29/2016 Documentation EM Family Medicine [address] [place], [place] [phone] Family Medicine, Physician [address] [place] [address] Social History Tobacco Use Types Packs/Day Years [...] on filedocumented in this encounter Care Teams Paperhanger Assistant Relationship Specialty Start Date End Date Marissa Guzmán NP PCP - General 04/01/17 02/10/23 documented as of this encounter
== END 2025-03-13 16:05 | disposition home or self-care (01) ==
LOC: HO.HUSH 15:28
PROVIDERS: PCP Internal Medicine; Visit Provider Nurse Practitioner Family
DX: N50.3 Cyst of epididymis (principal); R31.29 Other microscopic hematuria; Z13.9 Encounter for screening, unspecified
CPT/HCPCS: 99213

== ENCOUNTER 2025-03-26 15:04 | Outpatient (AMB) | payer OTHER, SELFPAY ==
--- NOTE | 2025-03-26 15:10 | A.OFFVIS_ITS ---
Vital Signs 03/26/25 15:11 Height 6 ft Weight 252 lb BMI 34.2 BP 120/64 Blood Pressure Location Lt brachial Pulse 93 Pulse Source Pulse Oximeter Pulse Oximetry (%) 97 Oxygen Delivery Method Room Air Intake Visit Reasons: Follow up Intake Note: Patient presents follow up sleep. No labs. Dentistry seen 12/2024(notes in chart). Accompanied by: Self / Same As Patient Allergies No Known Allergies Allergy (Verified 03/26/25 15:13) HPI Comments Details: 29 year old male is here for a f/u of sleep apnea with sleep dentistry. HST c/w AHI 0 and Oxygen [place] to 91%. February 2025 Sleep Dentistry note reviewed with patient, he has an overbite 1mm with over-jet of 2mm, facial anatomical features normal, uvula elongated, tonsil enlarged level 3 and high, Mallampti score 4, enlarged tonsils obstruct airway. Normal mandible, maxilla and TMJ, pain upon palpation. Labs reviewed with patient he has insufficiency of Vit. D, and LDL is elevated, reviewed lifestyle and diet changes to decrease LDL. He has a customizedl somno-gaurd, he had his first adjustment. He says sleep is improved, stays asleep longer now. Less night time arousals. He snores lightly now, and this will continue to improve once proper adjustments are made for his over-jet. He says daytime drowsiness has improved, his mood has improved also, less irritable, and now naps 2x / week vs daily. His memory is stable. He works for [employer] Medical History Fatigue Dyslipidemia Excessive daytime sleepiness Witnessed apneic spells Loud snoring Vitamin D deficiency Mixed anxiety depressive disorder Mass of left testicle Obesity (BMI 30.0-34.9) Surgical History No pertinent past surgical history Family History Mother Depression Maternal Aunt Mental health disorder Father HTN (hypertension) Maternal Aunt Breast cancer, Onset Age: 40 CVA (cerebral vascular accident) Paternal Uncle Diabetes mellitus Social History Housing: House Patient Tobacco Use Status: Former Tobacco user e-Cigarette/Vaping Use: Never Used service: No Current occupational status: employed Cognitive needs: No Hearing needs: No Vision needs: No Physical Exam Vital Signs: Last Vital Signs Pulse 93 03/26/25 15:11 BP 120/64 03/26/25 15:11 Pulse Ox 97 03/26/25 15:11 Oxygen Delivery Method Room Air 03/26/25 15:11 BMI result Body Mass Index 34.2 Const General: cooperative, comfortable and no acute distress Orientation/consciousness: patient oriented x3 Eyes Pupils: Equal, round and reactive pupils present Resp Effort & Inspection: normal respiratory effort and able to speak in complete sentences Neuro General: patient oriented x3 and moves all extremities Cranial nerves: Yes Equal, round and reactive pupils present, Yes Normal accommodation reflex present, Yes Bilaterally intact EOM present, Yes Normal facial strength present, Yes Midline tongue present, Yes Ability to bilaterally rotate head present and Yes Ability to bilaterally elevate shoulders present Motor exam (neuro): 5/5 motor strength present throughout and Normal motor muscle tone present throughout Psych Appearance: grossly normal Thought process: Normal thought process present Thought content: Normal thought content present Results Reviewed Results Reviewed: HST reviewed with patient, no evidence of DEBI. Sleep Dentistry note reviewed with patient. Labs reviewed with patient. Assessment & Plan Assessment & Plan (1) Loud snoring: Code(s): R06.83 - Snoring Category: Medical Plan: HST c/w AHI 0 and oxygen nadirs to 0%. Will send him for Sleep dentistry. (2) Fatigue: Code(s): R53.83 - Other fatigue Category: Medical Qualifiers: Fatigue type: unspecified Qualified Code(s): R53.83 - Other fatigue Plan: Labs to r/o deficiencies. CBC CMP TSH / B12/ Folate MMA/ Homocystieine, Ferritin. Plan DEBI no evidence per HST of debi. Labs reviewed continue vitamin D. Will f/u in 6 months to assess for sleep. Medications: Changed From cholecalciferol (vitamin D3) 50 mcg PO DAILY To cholecalciferol (vitamin D3) 50 mcg PO DAILY 90 caps 2RF vitamin D deficient 90 days MDD 50mcg Patient Instructions: Sleep Hygiene provided: set a scheduled bedtime and wake time to help regulate the circadian rhythm and balance the release of pituitary hormones. Sleep in a dark room, temperatures below 68 degrees, and no devices n bed. Limit caffeinated products 6 hours prior to bed, and limit fluids 2-4 hours prior to bed. Gentle night yoga, diffusing essential oils, and playing soft music can be relaxing. Coding Level of Care Code Est Pt Level 4 (64083) Diagnoses Loud snoring R06.83 Fatigue, unspecified type R53.83 Fatigue type: unspecified Time Spent (min) 25 Comment improved
[2025-03-26 15:11] VITALS: BP 120/64; PULSE 93; O2SAT 97; BMI 34.2
--- OUTSIDE RECORDS SUMMARY | 2025-03-26 15:35 | XMS_ITS | Encounter Summary ---
Author Organization [facility] Address [address] [place] [address] Phone Care Team Providers Care Tin Stacker Name Role Phone Marissa Guzmán NP Primary Care Provider Lucian ching Encounter Details Date Type Department Care Team (Late st Contact Info) Description 09/29/2016 Documentation EM Family Medicine [address] [place], [place] [phone] Family Medicine, Physician [address] [place] [address] Social History Tobacco Use Types Packs/Day Years [...] on filedocumented in this encounter Care Teams Tin Stacker Relationship Specialty Start Date End Date Marissa Guzmán NP PCP - General 04/01/17 02/10/23 documented as of this encounter
== END 2025-03-26 15:38 | disposition home or self-care (01) ==
LOC: HO.HSMS 15:05
PROVIDERS: PCP Internal Medicine; Visit Provider Physician Assistant Medical
DX: R06.83 Snoring (principal); R53.83 Other fatigue
CPT/HCPCS: 99214

== ENCOUNTER → 2025-07-05 19:30 | Outpatient (REF) | payer OTHER, SELFPAY | LOC: HO.SL 19:30 | PROVIDERS: PCP Internal Medicine; Visit Provider Physician Assistant Medical | DX: R06.83 Snoring (principal); G47.19 Other hypersomnia | CPT/HCPCS: 95810 ==

== ENCOUNTER → 2025-07-05 22:10 | Outpatient (BNV) | payer OTHER, SELFPAY | PROVIDERS: PCP Internal Medicine; Visit Provider Psychiatry & Neurology Neurology | DX: G47.33 Obstructive sleep apnea (adult) (pediatric) (principal) | CPT/HCPCS: 95810 ==